=== PATIENT | male | born 1950 | race Caucasian/White ===

== ENCOUNTER → 2017-07-07 | Day surgery (SDC) | payer BC, MEDICARE ==
[2017-06-24 08:15] VITALS: BMI 38.0
[~2017-07-07] VITALS: Ht 185.4 cm; Wt 131.8 kg
[~2017-07-07] MED LIST: ASCO100061 PO; CHOL4POW4 PO; CLON0.1T12 PO; GLUCTAB7 PO; HYDR-4717 PO; LIDOCAINE HCL 2% 2 ML VIAL (20MG/ML) ONE; LOSA50TA6 PO; MULT-190 PO; MULT-506 PO; OMEG-27 PO; POTA20TA16 PO; PROPOFOL IV EMULSION 10 MG/ML 20 ML VIAL IV ONE; SIMV20TA5 PO; SODIUM CHLORIDE 0.9% 500ML 500 ML IV ONE; TORS20TA2 PO
[2017-07-07 08:54] VITALS: Ht 185.4 cm; Wt 131.8 kg
--- NOTE | 2017-07-07 09:11 | Endo History and Physical ---
History & Physical Date of Service: Jul 07, 2017. Chief Complaint: screening Referring Physician: Dr. Maradiaga History of Present Illness 66 yo CM who presents for screening colonoscopy. Past Surgical History Hx Cardiac Surgery: No Hx Internal Defibrillator: No Hx Pacemaker: No Hx Abdominal Surgery: No Hx of Implantable Prosthesis: No Hx Post-Op Nausea and Vomiting: No Hx Cancer Surgery: No Hx Thoracic Surgery: No Hx Orthopedic: Yes (LT SHOULDER SURGERY, CERVICAL DISCECTOMY 2,3,4 (LIMITED LEFT)) Hx Urinary Tract Surgery: No Family History None Social History Smoking Status: Former Smoker Hx Substance Use: No Hx Alcohol Use: No Allergies Coded Allergies: Tetanus Toxoid (Verified Allergy, Mild, NUMBNESS, 06/24/17) Acetaminophen (Verified Adverse Reaction, Intermediate, FLUSHING WITH " TOO MUCH TYLENOL", 07/07/17) Sulfa Antibiotics (Verified Adverse Reaction, Intermediate, "PEELED SKIN OFF BOTTOM OF FEET", 07/07/17) Current Medications Reported Home Medications Medications Dose Route/Sig Max Daily Dose Days Date Category Cozaar (Losartan Potassium) 50 Mg Tab 50 Mg PO QAM 06/24/17 Reported Catapres (Clonidine Hcl) 0.1 Mg Tab 1 Tab PO BID 06/24/17 Reported Klor-Con (Potassium Chloride) 20 Meq Tabcr 20 Meq PO TID 06/24/17 Reported Multivitamin (Multivitamins) Tab 1 Tab PO QAM 06/24/17 Reported Fish Oil ([place]-3 Fatty Acids) 1 Cap Cap 1 Cap PO QAM 06/24/17 Reported Ocuvite Preservision (Multivitamins/Minerals) 1 Tab Tab 2 Tabs PO BID 06/24/17 Reported Apresoline (Hydralazine Hcl) 50 Mg Tab 50 Mg PO BID 06/24/17 Reported Ascorbic Acid 1,000 Mg Tab 1,000 Mg PO QAM 02/01/13 Reported Glucosamine Chondroitin (Jyjhtqliewr-Klwlzoaqbov-Whr C-) 1 Tab Tab 2 Tablets PO QAM 02/01/13 Reported Demadex (Torsemide) 20 Mg Tab 1 Tab PO QAM 02/01/13 Reported Zocor (Simvastatin) 20 Mg Tab 20 Mg PO QAM 02/01/13 Reported Cholestyramine 4 Gm Pow 4 Gm PO BID 02/01/13 Reported Vital Signs Weight (Kilograms): 131.82 Height (Feet): 6 Height (Inches): 1 Date Time Temp Pulse Resp B/P (MAP) Pulse Ox O2 Delivery O2 Flow Rate FiO2 07/07/17 08:59 36.6 63 18 160/98 (118) 95 Room Air Physical Exam General Appearance: WD/WN, no apparent distress Respiratory/Chest: Auscultation: breath sounds normal Cardiovascular: Heart Auscultation: RRR Abdomen: Bowel Sounds: normal Inspection & Palpation: soft, non-distended, no tenderness, guarding & rebound Assessment and Plan Assessment: 66 yo CM who presents for screening colonoscopy. Plan: Proceed with colonoscopy.
--- NOTE | 2017-07-07 10:16 | GI REPORT ---
Procedure Date: 07/07/2017 9:37 AM Procedure: Colonoscopy Indications: Screening for colorectal malignant neoplasm Medicines: Monitored Anesthesia Care Complications: No immediate complications. Estimated Blood Loss: Estimated blood loss: none. Procedure: Pre-Anesthesia Assessment: - Prior to the procedure, a History and Physical was performed, and patient medications and allergies were reviewed. The patient's tolerance of previous anesthesia was also reviewed. The risks and benefits of the procedure and the sedation options and risks were discussed with the patient. All questions were answered, and informed consent was obtained. Prior Anticoagulants: The patient has taken no previous anticoagulant or antiplatelet agents. ASA Grade Assessment: II - A patient with mild systemic disease. After reviewing the risks and benefits, the patient was deemed in satisfactory condition to undergo the procedure. After I obtained informed consent, the scope was passed under direct vision. Throughout the procedure, the patient's blood pressure, pulse, and oxygen saturations were monitored continuously. The scope was introduced through the anus and advanced to the terminal ileum. The colonoscopy was performed without difficulty. The patient tolerated the procedure well. The quality of the bowel preparation was good. The terminal ileum, ileocecal valve, appendiceal orifice, and rectum were photographed. Findings: Multiple small-mouthed diverticula were found in the sigmoid colon. Non-bleeding internal hemorrhoids were found during retroflexion. The hemorrhoids were small. Impression: - Diverticulosis in the sigmoid colon. - Non-bleeding internal hemorrhoids. - No specimens collected. Recommendation: - Resume previous diet. - Continue present medications. - Repeat colonoscopy in 10 years for surveillance. - Return to primary care physician as previously scheduled. Gamal Patricio, 07/07/2017 10:15:07 AM This report has been signed electronically. Note Initiated On: 07/07/2017 9:37 AM I attest to the content of the Intraoperative Record and orders documented therein, exceptions below
--- NOTE | 2017-07-07 10:19 | Discharge Instructions ---
Endoscopy Patient Instructions Date / Procedure(s) Performed Jul 07, 2017. Colonoscopy Allergy Information Coded Allergies: Tetanus Toxoid (Verified Allergy, Mild, NUMBNESS, 06/24/17) Acetaminophen (Verified Adverse Reaction, Intermediate, FLUSHING WITH " TOO MUCH TYLENOL", 07/07/17) Sulfa Antibiotics (Verified Adverse Reaction, Intermediate, "PEELED SKIN OFF BOTTOM OF FEET", 07/07/17) Discharge Date / Findings Jul 07, 2017. Diverticulosis Internal hemorrhoids Medication Instructions OK to resume all medications today as prescribed Reported Home Medications Medications Dose Route/Sig Max Daily Dose Days Date Category Cozaar (Losartan Potassium) 50 Mg Tab 50 Mg PO QAM 06/24/17 Reported Catapres (Clonidine Hcl) 0.1 Mg Tab 1 Tab PO BID 06/24/17 Reported Klor-Con (Potassium Chloride) 20 Meq Tabcr 20 Meq PO TID 06/24/17 Reported Multivitamin (Multivitamins) Tab 1 Tab PO QAM 06/24/17 Reported Fish Oil ([place]-3 Fatty Acids) 1 Cap Cap 1 Cap PO QAM 06/24/17 Reported Ocuvite Preservision (Multivitamins/Minerals) 1 Tab Tab 2 Tabs PO BID 06/24/17 Reported Apresoline (Hydralazine Hcl) 50 Mg Tab 50 Mg PO BID 06/24/17 Reported Ascorbic Acid 1,000 Mg Tab 1,000 Mg PO QAM 02/01/13 Reported Glucosamine Chondroitin (Xwwuenouktz-Fuuqhudtwtw-Hzl C-) 1 Tab Tab 2 Tablets PO QAM 02/01/13 Reported Demadex (Torsemide) 20 Mg Tab 1 Tab PO QAM 02/01/13 Reported Zocor (Simvastatin) 20 Mg Tab 20 Mg PO QAM 02/01/13 Reported Cholestyramine 4 Gm Pow 4 Gm PO BID 02/01/13 Reported Provider Instructions Activity Restrictions - No exercising or heavy lifting for 24 hours. - Do not drink alcohol the day of the procedure. - Do not drive a car or operate machinery until the day after the procedure. - Do not make any important decisions or sign important papers in 24 hours after the procedure. Following Day: - Return to full activity which may include returning to work/school. Diet Start your diet with liquids and light foods (jello, soup, juice, toast). Then eat your usual diet if not nauseated. Treatment For Common After Affects For mild abdominal pain, bloating, or excessive gas: - Rest - Eat lightly - Lie on right side Follow-Up Information Follow-up with Dr. Maradiaga as scheduled Anesthesia Information What You Should Know You have had a procedure that required some medicine to reduce anxiety and discomfort. This treatment is called moderate sedation. After receiving the treatment, you may be sleepy, but you will be able to breathe on your own. The effects of the treatment may last for several hours. Follow these instructions along with Activity/Diet recommendations noted above: * Do NOT do anything where dizziness or clumsiness would be dangerous. * Rest quietly at home today, then you can be up and about tomorrow. * Have a responsible person stay with you the rest of today. * You may have had an I.V. today. If so, you may take the dressing off later today. Recommendations Call your doctor if: * Trouble breathing * Continuous vomiting for more than 24 hours * Temperature above 101 degrees * Severe abdominal pain or bloating * Pain not relieved by pain medicine ordered * There is increased drainage or redness from any incision * A large amount of rectal bleeding greater than 2-3 tablespoons. (If you had a polyp/s removed or have hemorrhoids, a small amount of blood - from the rectum is to be expected.) * You have any unanswered questions or concerns. IN THE EVENT OF A SERIOUS EMERGENCY, GO TO THE NEAREST EMERGENCY ROOM Your discharge instructions were prepared by provider Gamal Patricio. Patient Instructions Signature Page Aníbal Salazar Patient (or Guardian) Signature/Date: I have read and understand the instructions given to me by my caregivers. Caregiver/RN/Doctor Signature/Date: The above-named patient and/or guardian has received patient instructions on this date. + Original Patient Signature Page (only) stays with chart. Please make copy for patient.
--- NOTE | 2017-07-07 10:37 | Anesthesiology Progress Note ---
Anesthesia Post Op Note Date & Time Jul 07, 2017 at 10:37 Vital Signs Pain Intensity: 0 Vital Signs Past 12 Hours Date Time Temp Pulse Resp B/P (MAP) Pulse Ox O2 Delivery O2 Flow Rate FiO2 07/07/17 10:23 59 18 131/88 (102) 96 Room Air 07/07/17 10:08 68 18 130/87 (101) 97 Room Air 07/07/17 08:59 36.6 63 18 160/98 (118) 95 Room Air Notes Mental Status: alert / awake / arousable, participated in evaluation Pt Amnestic to Procedure: Yes Nausea / Vomiting: adequately controlled Pain: adequately controlled Airway Patency, RR, SpO2: stable & adequate BP & HR: stable & adequate Hydration State: stable & adequate Anesthetic Complications: no major complications apparent
[2017-07-07 10:38] VITALS: BP 155/97; PULSE 59; O2SAT 97
== END | disposition home or self-care (01) ==
LOC: C.GI 08:29
PROVIDERS: ATTEND Internal Medicine
DX: Z12.11 Encounter for screening for malignant neoplasm of colon (principal); Z87.891 Personal history of nicotine dependence; K57.30 Diverticulosis of large intestine without perforation or abscess without bleeding; K64.8 Other hemorrhoids

== ENCOUNTER 2017-10-28 10:36 | Inpatient (IN) | payer MEDICARE, OTHER ==
[2017-10-28] VITALS (8 sets, daily range): BP systolic 136–160; BP diastolic 71–98; PULSE 90–130; TEMP 36.8–37.8; O2SAT 92–97; Ht 185.4 cm; Wt 135.1 kg
[~2017-10-28] VITALS: Ht 185.4 cm; Wt 135.1 kg
[~2017-10-28 10:36] MED LIST changes: -LIDOCAINE HCL 2% 2 ML VIAL (20MG/ML) ONE; +POTA-639 PO; -POTA20TA16 PO; -PROPOFOL IV EMULSION 10 MG/ML 20 ML VIAL IV ONE; -SODIUM CHLORIDE 0.9% 500ML 500 ML IV ONE
[2017-10-28 11:45] LABS: HEMATOCRIT 44.8 % (42-52); HEMOGLOBIN 14.9 g/dL (14.0-18.0); MEAN CELL VOLUME 92.2 fL (80-100); MEAN CORPUSCULAR HEMOGLOBIN 30.7 pg (25-34); MEAN CORPUSCULAR HGB CONC 33.3 g/dl (32-36); MEAN PLATELET VOLUME 10.9 fL (7.4-10.4); PLATELET COUNT 239 K/uL (130-400); RED CELL DISTRIBUTION WIDTH CV 13.7 % (11.5-14.5); RED CELL DISTRIBUTION WIDTH SD 46.3 fL (36.4-46.3); WHITE BLOOD COUNT 11.73 K/uL (4.8-10.8)
[2017-10-28 11:48] LABS: INR 1.1 (0.9-1.1)
[2017-10-28 11:54] LABS: ALBUMIN 2.5 gm/dl (3.4-5.0); CALCIUM 8.7 mg/dl (8.5-10.1); CREATININE 0.85 mg/dl (0.60-1.40); POTASSIUM 4.1 mmol/L (3.5-5.1)
[2017-10-28 11:58] LABS: CKMB 1.5 ng/ml (0.5-3.6); TOTAL PROTEIN 6.6 gm/dl (6.4-8.2)
--- NOTE | 2017-10-28 12:00 | DIAGNOSTIC IMAGING REPORT ---
CHEST ONE VIEW PORTABLE CLINICAL HISTORY: new onset afib COMPARISON STUDY: 03/07/2014 FINDINGS: The heart is enlarged. There is no lobar consolidation. There is suspected bronchial wall thickening within the right lower lobe medially. There is mild central vascular prominence without evidence of overt failure. There are no significant pleural effusions. There are minor left basilar atelectatic changes.[ IMPRESSION: 1. Cardiomegaly. Mild central vascular prominence without evidence of overt failure 2. Suspected right lower lobe bronchial wall thickening Electronically signed by: Toño Romero M.D. 10/28/2017 11:58 AM Dictated Date/Time: 10/28/2017 11:57 AM
[2017-10-28] MEDS ORDERED: SODIUM CHLORIDE 0.9% 1000ML 1,000 ML IV STA (12:12)
--- NOTE | 2017-10-28 12:31 | EMERGENCY ROOM VISIT NOTE ---
History Report prepared by María: Osbaldo Torres Under the Supervision of: Dr. Jaylon Bang M.D. First contact with patient: 12:01 Chief Complaint: CARDIAC ASSESSMENT Stated Complaint: FLU - REFERRED BY DR Kaba Triage Summary: pt c/o cough w/ thick yellow sputum begining zackary leonard. pt went to PCP this am for flu like sx. instructed to come to ER d/t new onset a. fib. History of Present Illness The patient is a 67 year old male who presents to the Emergency Room with complaints of constant atrial fibrillation that began prior to arrival. The patient states that he has had the flu starting 8 days ago, including a productive cough with yellow sputum. He reports that he has also been experiencing a fever, sinus congestion, and a headache. The patient states that he has been experiencing intermittent diarrhea as well. The patient states that he has not been able to sleep and has not had an appetite due to his symptoms. He states that he took Delsym, DayQuil, and other cold medications for his symptoms with some mild relief. The patient states that his symptoms are not as severe today as they were previously. He reports that he went to his doctor today for his flu symptoms to get medications. The patient states that Dr. Junior diagnosed him with atrial fibrillation after testing and sent him to the ED. He denies chest pain, palpitations, a history of heart problems, leg pain, new leg swelling, and abdominal pain. The patient states that he has a history of hypertension, which he states he has been taking medication for. He reports he also takes medication for leg swelling, but states that he did not take his medication today. The patient denies any fluid in his lungs. Source of History: patient Onset: MED DIR Position: other (global) Quality: other (atrial fibrillation) Timing: constant Associated Symptoms: + fevers, + headache, + cough, + diarrhea, No chest pain, No abdominal pain Review of Systems See HPI for pertinent positives & negatives. A total of 10 systems reviewed and were otherwise negative. Past Medical & Surgical Medical Problems: (1) HTN (hypertension) (2) New onset a-fib Surgical Problems: (1) H/O shoulder surgery Old medical records were reviewed. Nurse's notes were reviewed and I agree with. Family History Patient reports no known family medical history. Social History Smoking Status: Former Smoker Alcohol Use: none Drug Use: none Marital Status: Housing Status: lives with significant other Occupation Status: retired Current/Historical Medications Scheduled Ascorbic Acid (Ascorbic Acid), 1,000 MG PO QAM Cholestyramine (Cholestyramine), 4 GM PO BID Clonidine Hcl (Catapres), 0.1 MG PO BID Sxvghzievvs-Qmamaxnyrhr-Vcr C- (Glucosamine Chondroitin), 2 TABLETS PO QAM Hydralazine Hcl (Apresoline), 50 MG PO BID Losartan Potassium (Cozaar), 50 MG PO QAM Multivitamin (Multivitamin), 1 TAB PO QAM Ocuvite Preservision (Ocuvite Preservision), 2 TABS PO BID [place]-3 Fatty Acids (Fish Oil), 1 CAP PO QAM Potassium Ext Rel (Klor-Con), 20 MEQ PO TID Simvastatin (Zocor), 20 MG PO QAM Torsemide (Demadex), 20 MG PO QAM Allergies Coded Allergies: Tetanus Toxoid (Verified Allergy, Mild, NUMBNESS, 10/28/17) Acetaminophen (Verified Adverse Reaction, Intermediate, FLUSHING WITH " TOO MUCH TYLENOL", 10/28/17) Sulfa Antibiotics (Verified Adverse Reaction, Intermediate, "PEELED SKIN OFF BOTTOM OF FEET", 10/28/17) Physical Exam Vital Signs Date Time Temp Pulse Resp B/P (MAP) Pulse Ox O2 Delivery O2 Flow Rate FiO2 10/28/17 13:10 92 Nasal Cannula 2.0 10/28/17 12:56 120 20 129/88 92 Nasal Cannula 2.0 10/28/17 11:36 128 10/28/17 11:33 Room Air 10/28/17 11:30 93 Room Air 10/28/17 11:30 94 Room Air 10/28/17 11:30 93 Room Air 10/28/17 11:30 94 Room Air 10/28/17 11:19 130 18 117/81 94 Room Air 10/28/17 11:17 97 Room Air 10/28/17 10:58 37.7 132 20 162/98 97 Room Air Physical Exam General: Non-ill appearing middle aged male with an occasional cough, otherwise in no acute distress. HEENT: Normal cephalic atraumatic. Pupils are equal round and reactive to light. Extraocular movements are intact. Oropharynx is pink with moist mucous membranes. No swelling of the mouth lips or tongue. Neck: Supple with a midline trachea. No meningeal signs or stiffness, no JVD or bruits. No Stridor. Chest: Clear to auscultation bilaterally. No wheezes or rhonchi. No increased work of breathing. Heart: Moderately tachycardic and irregularly irregular. Abdomen: Soft nontender, nondistended without rebound guarding or rigidity. Extremities: No cyanosis clubbing. traced 1+ le edema. No calf tenderness or assymetry Spine/Back. Non tender to palpation. No CVA tenderness Skin: Good turgor without rashes. Neurologic exam: Cranial nerves two through 12 are intact. Motor and sensation are intact and symmetrical throughout. Medical Decision & Procedures ER Provider Diagnostic Interpretation: Radiology results as stated below per my review and radiologist interpretation: CHEST ONE VIEW PORTABLE CLINICAL HISTORY: new onset afib COMPARISON STUDY: 03/07/2014 FINDINGS: The heart is enlarged. There is no lobar consolidation. There is suspected bronchial wall thickening within the right lower lobe medially. There is mild central vascular prominence without evidence of overt failure. There are no significant pleural effusions. There are minor left basilar atelectatic changes.[ IMPRESSION: 1. Cardiomegaly. Mild central vascular prominence without evidence of overt failure 2. Suspected right lower lobe bronchial wall thickening Electronically signed by: Toño Romero M.D. 10/28/2017 11:58 AM Dictated Date/Time: 10/28/2017 11:57 AM CHEST ONE VIEW PORTABLE CLINICAL HISTORY: CHEST PAIN dyspnea COMPARISON STUDY: 10/28/2017 FINDINGS: Side progressive bibasilar interstitial Bronchial prominence. Moderate stable cardiomegaly. Upper lungs are clear. IMPRESSION: Some progressive bibasilar parenchymal peribronchial and interstitial change possibly in the bases of basilar pneumonitis. The above report was generated using voice recognition software. It may contain grammatical, syntax or spelling errors. Electronically signed by: Nam Bradford M.D. 10/28/2017 1:00 PM Dictated Date/Time: 10/28/2017 12:56 PM Laboratory Results 10/28/17 11:10 Test 10/28/17 11:10 10/28/17 12:26 10/28/17 12:44 Prothrombin Time 11.3 SECONDS (9.0-12.0) Prothromb Time International Ratio 1.1 (0.9-1.1) Activated Partial Thromboplast Time 27.0 SECONDS (21.0-31.0) Partial Thromboplastin Ratio 1.0 Anion Gap 6.0 mmol/L (3-11) Est Creatinine Clear Calc Drug Dose 111.1 ml/min Estimated GFR () 104.5 Estimated GFR (Non- 90.2 BUN/Creatinine Ratio 13.9 (10-20) Calcium Level 8.7 mg/dl (8.5-10.1) Phosphorus Level 2.4 mg/dl (2.5-4.9) Magnesium Level 2.4 mg/dl (1.8-2.4) Total Bilirubin 0.7 mg/dl (0.2-1) Direct Bilirubin 0.3 mg/dl (0-0.2) Aspartate Amino Transf (AST/SGOT) 45 U/L (15-37) Alanine Aminotransferase (ALT/SGPT) 107 U/L (12-78) Alkaline Phosphatase 78 U/L (45-117) Total Creatine Kinase 100 U/L (39-308) Creatine Kinase MB 1.5 ng/ml (0.5-3.6) Creatine Kinase MB Ratio 1.5 (0-3.0) Troponin I 0.022 ng/ml (0-0.045) Pro-B-Type Natriuretic Peptide 1448 pg/ml (0-900) Total Protein 6.6 gm/dl (6.4-8.2) Albumin 2.5 gm/dl (3.4-5.0) Globulin 4.1 gm/dl (2.5-4.0) Albumin/Globulin Ratio 0.6 (0.9-2) Triglycerides Level 102 mg/dl (0-150) Cholesterol Level 120 mg/dl (0-200) HDL Cholesterol 24 mg/dl LDL Cholesterol, Calculated 76 mg/dl VLDL Cholesterol, Calculated 20 mg/dl Cholesterol/HDL Ratio 5.0 Lipase 344 U/L (73-393) Thyroid Stimulating Hormone (TSH) 0.895 uIu/ml (0.300-4.500) Thyroxine (T4) 9.2 mcg/dl (4.5-10.9) Influenza Type A (RT-PCR) Neg for Influ A (NEG) Influenza Type A Antigen Neg for Influ A (NEG) Influenza Type B Antigen Neg for Influ B (NEG) Influenza Type B (RT-PCR) Neg for Influ B (NEG) Bedside Lactic Acid Venous 1.25 mmol/L (0.90-1.70) Laboratory studies as stated above per my review. Medications Administered Medications (Trade) Dose Ordered Sig/Rere Route Start Time Stop Time Status Last Admin Dose Admin Sodium Chloride 1,000 ml @ 999 mls/hr Q1H1M STAT IV 10/28/17 12:12 10/28/17 13:12 DC 10/28/17 12:23 999 MLS/HR ECG Indication: other (atrial fibrillation) Rate (beats per minute): 138 Rhythm: atrial fibrillation Findings: nonspecific-ST abn, other (RVR) Comparison ECG Date: Pre-hospital Change: no significant change ED Course 1201: Past medical records reviewed. The patient was evaluated in room C05, and a complete history and physical examination were performed. 1212: Ordered Sodium Chloride 1000 ml @ 999 mls/hr IV. 1217: I paged Cardiology. 1218: I reevaluated the patient and updated him on his results. I discussed the treatment plan, which he agrees to. The patient will be further evaluated. 1239: I discussed the patients case with Dr. Maco Castro, [facility] Cardiology . He understands the patients condition and agrees to accept the patient. The patient will be further evaluated. Medical Decision Differentials include, but are not limited to; influenza, pneumonia, CHF, arrhythmia, valvular heart disease , electrolyte or metabolic abnormality. This patient comes in as described above. He was sent over by the primary care physician after being found to be a new onset rapid A. fib. He's had flulike symptoms for about the last week. He's had a cough and he does have a low- grade temperature here. His heart rate is mildly elevated. Some of this I think is compensatory with the fever. He's been using a lot of cold medicines which could have some stimulants in them. IV access established and he was hydrated with IV normal saline. EKG shows rapid A. fib but no ischemic changes. His troponin is not elevated influenza is pending. No acute electrode or metabolic abnormalities. I do think he needs to be admitted for further treatment and evaluation certainly infection or sepsis is still in the differential and blood cultures were obtained. He will be admitted. Medication Reconcilliation Current Medication List: was personally reviewed by me Blood Pressure Screening Patient's blood pressure: Normal blood pressure Consults Time Called: 1217 Consulting Physician: Dr. Maco Castro, [facility] Cardiology Returned Call: 1239 I discussed the patients case with Dr. Maco Castro, [facility] Cardiology . He understands the patients condition and agrees to accept the patient. The patient will be further evaluated. Impression Primary Impression: New onset a-fib Additional Impression: Influenza-like illness Scribe Attestation The scribe's documentation has been prepared under my direction and personally reviewed by me in its entirety. I confirm that the note above accurately reflects all work, treatment, procedures, and medical decision making performed by me. Departure Information Dispostion Being Evaluated By Hospitalist Referrals Jaylon Maradiaga DO (PCP) Patient Instructions My [facility] Problem Qualifiers
--- NOTE | 2017-10-28 13:01 | DIAGNOSTIC IMAGING REPORT ---
CHEST ONE VIEW PORTABLE CLINICAL HISTORY: CHEST PAIN dyspnea COMPARISON STUDY: 10/28/2017 FINDINGS: Side progressive bibasilar interstitial Bronchial prominence. Moderate stable cardiomegaly. Upper lungs are clear. IMPRESSION: Some progressive bibasilar parenchymal peribronchial and interstitial change possibly in the bases of basilar pneumonitis. The above report was generated using voice recognition software. It may contain grammatical, syntax or spelling errors. Electronically signed by: Nam Bradford M.D. 10/28/2017 1:00 PM Dictated Date/Time: 10/28/2017 12:56 PM
--- NOTE | 2017-10-28 13:10 | NUR ---
A/ID: 67 year old male in ED. c/o flu s/s and new onset atrial fibrillation. PCU admission. Admission Assessment done. Code Word/Fall Agreement reviewed with patient and completed. Droplet precautions. Continued care in ED by YESICA Agudelo.
[2017-10-28 13:16] LABS: INFLUENZA B ANTIGEN Neg for Influ B (NEG)
[2017-10-28] MEDS ORDERED: ALUMINUM/MAGNESIUM/SIMETH (MAALOX MAX) 30 ML UDC PO PRN (13:45)
[2017-10-28] MEDS ORDERED: NITROGLYCERIN 0.4 MG SL PER TAB CHARGE SL PRN (13:45)
[2017-10-28] MEDS ORDERED: POLYETHYLENE (MIRALAX) 17 GM PACK PO PRN (13:45)
[2017-10-28] MEDS ORDERED: MAGNESIUM HYDROXIDE SUSP 30 ML UDC PO PRN (13:45)
[2017-10-28] MEDS ORDERED: ONDANSETRON INJ 2 MG/ML 2 ML VIAL IV PRN (13:45)
[2017-10-28] MEDS ORDERED: DILTIAZEM BOLUS / DRIP IV SCH (13:45)
[2017-10-28] MEDS ORDERED: ZOLPIDEM TARTRATE 5 MG TAB PO PRN ×2 (13:45)
[2017-10-28 14:00] LABS: INFLUENZA A PCR Neg for Influ A (NEG); INFLUENZA B PCR Neg for Influ B (NEG)
[2017-10-28] MEDS ORDERED: DILTIAZEM HCL 5 MG/ML 5 ML VIAL BOLUS/OMNI IV SCH (14:30)
[2017-10-28 14:58] LABS: BASO % 0.1 %; BASO ABS # 0.01 K/uL (0-0.2); EOS % 0.5 %; EOS ABS # 0.05 K/uL (0-0.5); HEMATOCRIT 43.3 % (42-52); HEMOGLOBIN 14.4 g/dL (14.0-18.0); IG# 0.03 K/uL (0.00-0.02); LYMPH % 11.4 %; LYMPH ABS # 1.16 K/uL (1.2-3.4); MEAN CELL VOLUME 92.3 fL (80-100); MEAN CORPUSCULAR HEMOGLOBIN 30.7 pg (25-34); MEAN CORPUSCULAR HGB CONC 33.3 g/dl (32-36); MEAN PLATELET VOLUME 10.2 fL (7.4-10.4); MONO % 12.8 %; NEUT % 74.9 %; NEUT ABS # 7.61 K/uL (1.4-6.5); PLATELET COUNT 216 K/uL (130-400); RED CELL DISTRIBUTION WIDTH CV 13.9 % (11.5-14.5); RED CELL DISTRIBUTION WIDTH SD 47.3 fL (36.4-46.3); WHITE BLOOD COUNT 10.16 K/uL (4.8-10.8)
[2017-10-28] MEDS: DILTIAZEM HCL INJ 125 MG in DEXTROSE 5% 100ML IV PRN ×4 (14:58→23:16)
[2017-10-28 15:05] LABS: PHOSPHORUS 2.4 mg/dl (2.5-4.9)
--- NOTE | 2017-10-28 15:23 | History and Physical ---
History & Physical Date & Time of Service: Oct 28, 2017 at 15:12 Chief Complaint: Flu - Referred By Primary Care Physician: Jaylon Maradiaga DO History of Present Illness Source: patient, partner 67 years old man with past medical history of hypertension, dyslipidemia, arthritis and obesity. Presented to the ED as he was sent from his primary care physician office to be evaluated for new onset atrial fibrillation. He has upper respiratory tract infection for 1 week. Fever chills dry cough rarely productive clear mucus. He thought he has flu. He was treating himself with [id number] medications Delsym, DayQuil, etc. ). Presented today to Dr. Robin office. Accidentally found that she has new onset atrial fibrillation. Aside from the symptoms mentioned above patient does not have any chest pain or palpitation. Not aware of any similar episodes in the past.. He skipped taking his water bill today so his lower extremities are slightly swollen as per patient. He does not take aspirin and he was instructed not to do He was also instructed not to take any ouvz-vps-gkiqfpm pain medicine except Tylenol Does not smoke Drinks alcohol socially Past Medical/Surgical History Surgical Problems: (1) H/O shoulder surgery Status: Resolved Family History Patient reports no known family medical history. Social History Smoking Status: Former Smoker Drug Use: none Marital Status: Occupational Status: retired Immunizations History of Influenza Vaccine: No History of Tetanus Vaccine?: No History of Pneumococcal: No History of Hepatitis B Vaccine: No Multi-Drug Resistant Organisms History of MDRO: No Allergies Coded Allergies: Tetanus Toxoid (Verified Allergy, Mild, NUMBNESS, 10/28/17) Acetaminophen (Verified Adverse Reaction, Intermediate, FLUSHING WITH " TOO MUCH TYLENOL", 10/28/17) Sulfa Antibiotics (Verified Adverse Reaction, Intermediate, "PEELED SKIN OFF BOTTOM OF FEET", 10/28/17) Home Medications Scheduled Ascorbic Acid (Ascorbic Acid), 1,000 MG PO QAM Cholestyramine (Cholestyramine), 4 GM PO BID Clonidine Hcl (Catapres), 0.1 MG PO BID Oeihxinsyjy-Rqwukooinku-Zqe C- (Glucosamine Chondroitin), 2 TABLETS PO QAM Hydralazine Hcl (Apresoline), 50 MG PO BID Losartan Potassium (Cozaar), 50 MG PO QAM Multivitamin (Multivitamin), 1 TAB PO QAM Ocuvite Preservision (Ocuvite Preservision), 2 TABS PO BID [place]-3 Fatty Acids (Fish Oil), 1 CAP PO QAM Potassium Ext Rel (Klor-Con), 20 MEQ PO TID Simvastatin (Zocor), 20 MG PO QAM Torsemide (Demadex), 20 MG PO QAM Review of Systems Constitutional: + fever, + chills, + fatigue Eyes: No worsening of vision, No eye pain, No redness, No discharge, No diplopia, No problem reported ENT: No hearing loss, No unusual epistaxis, No nasal symptoms, No sore throat, No tinnitus, No dental problems, No trouble swallowing, No problem reported Respiratory: + cough, + shortness of breath, + dyspnea on exertion, No sputum, No wheezing, No dyspnea at rest, No hemoptysis, No problem reported Cardiovascular: No chest pain, No orthopnea, No PND, No edema, No claudication , No palpitations, No problem reported Abdomen: No pain, No nausea, No vomiting, No diarrhea, No constipation, No GI bleeding, No problem reported Musculoskeletal: No joint pain, No muscle pain, No swelling, No calf pain, No problem reported Genitourinary - Male: No hematuria, No dysuria, No urinary frequency, No urinary urgency, No urinary hesitancy, No urinary retention, No urinary incontinence, No penile discharge, No lesions, No impotence, No problem reported Neurologic: No memory loss, No paralysis, No weakness, No numbness/tingling, No vertigo, No balance problems, No problem reported Psychiatric: No depression symptoms, No anhedonism, No anxiety, No insomnia, No substance abuse, No problem reported Endocrine: No fatigue, No excessive thirst, No excessive urination, No problem reported Hematologic / Lymphatic: No abnormal bleeding/bruising, No clotting problems, No swollen lymph nodes, No night sweats, No problem reported Integumentary: No rash, No itch, No new/changing skin lesions, No color change , No bleeding, No problem reported Allergic / Immunologic: No environmental allergies, No seasonal allergies, No pet sensitivities, No food allergies, No hives, No frequent infections, No poor healing, No prolonged convalescence, No problem reported Physical Exam Vital Signs Date Time Temp Pulse Resp B/P (MAP) Pulse Ox O2 Delivery O2 Flow Rate FiO2 1/2/18 12:56 120 20 129/88 92 Nasal Cannula 2.0 10/28/17 11:36 128 10/28/17 11:33 Room Air 10/28/17 11:30 93 Room Air 10/28/17 11:30 94 Room Air 10/28/17 11:30 93 Room Air 10/28/17 11:30 94 Room Air 10/28/17 11:19 130 18 117/81 94 Room Air 10/28/17 11:17 97 Room Air 10/28/17 10:58 37.7 132 20 162/98 97 Room Air General Appearance: no apparent distress, + obese Head: normocephalic, atraumatic Eyes: normal inspection, EOMI ENT: normal ENT inspection, hearing grossly normal Neck: supple Respiratory/Chest: chest non-tender, lungs clear, no accessory muscle use, + decreased breath sounds, + crackles Cardiovascular: + irregularly irregular, + abnormal rate, + pertinent finding ( +2 edema B/L) Abdomen/GI: normal bowel sounds, non tender, soft, no organomegaly, no pulsatile mass Back: normal inspection Extremities/Musculoskelatal: normal inspection, no calf tenderness, normal capillary refill, + pedal edema Neurologic/Psych: board saw runner II-XII nml as tested, no motor/sensory deficits, alert, normal mood/affect, normal reflexes, oriented x 3 Skin: normal color, warm/dry, no rash Diagnostics Laboratory Results Results Past 24 Hours Test 10/28/17 11:10 10/28/17 12:26 10/28/17 12:44 10/28/17 14:51 Range/Units White Blood Count 11.73 10.16 4.8-10.8 K/uL Red Blood Count 4.86 4.69 4.7-6.1 M/uL Hemoglobin 14.9 14.4 14.0-18.0 g/dL Hematocrit 44.8 43.3 42-52 % Mean Corpuscular Volume 92.2 92.3 80-100 fL Mean Corpuscular Hemoglobin 30.7 30.7 25-34 pg Mean Corpuscular Hemoglobin Concent 33.3 33.3 32-36 g/dl RDW Standard Deviation 46.3 47.3 36.4-46.3 fL RDW Coefficient of Variation 13.7 13.9 11.5-14.5 % Platelet Count 239 216 130-400 K/uL Mean Platelet Volume 10.9 10.2 7.4-10.4 fL Prothrombin Time 11.3 9.0-12.0 SECONDS Prothromb Time International Ratio 1.1 0.9-1.1 Activated Partial Thromboplast Time 27.0 21.0-31.0 SECONDS Partial Thromboplastin Ratio 1.0 Sodium Level 140 136-145 mmol/L Potassium Level 4.1 3.5-5.1 mmol/L Chloride Level 107 98-107 mmol/L Carbon Dioxide Level 27 21-32 mmol/L Anion Gap 6.0 3-11 mmol/L Blood Urea Nitrogen 12 7-18 mg/dl Creatinine 0.85 0.60-1.40 mg/dl Est Creatinine Clear Calc Drug Dose 111.1 ml/min Estimated GFR () 104.5 Estimated GFR (Non- 90.2 BUN/Creatinine Ratio 13.9 10-20 Random Glucose 121 70-99 mg/dl Calcium Level 8.7 8.5-10.1 mg/dl Phosphorus Level 2.4 2.5-4.9 mg/dl Magnesium Level 2.4 1.8-2.4 mg/dl Total Bilirubin 0.7 0.2-1 mg/dl Direct Bilirubin 0.3 0-0.2 mg/dl Aspartate Amino Transf (AST/SGOT) 45 15-37 U/L Alanine Aminotransferase (ALT/SGPT) 107 12-78 U/L Alkaline Phosphatase 78 45-117 U/L Total Creatine Kinase 100 39-308 U/L Creatine Kinase MB 1.5 0.5-3.6 ng/ml Creatine Kinase MB Ratio 1.5 0-3.0 Troponin I 0.022 0-0.045 ng/ml Pro-B-Type Natriuretic Peptide 1448 0-900 pg/ml Total Protein 6.6 6.4-8.2 gm/dl Albumin 2.5 3.4-5.0 gm/dl Globulin 4.1 2.5-4.0 gm/dl Albumin/Globulin Ratio 0.6 0.9-2 Triglycerides Level 102 0-150 mg/dl Cholesterol Level 120 0-200 mg/dl HDL Cholesterol 24 mg/dl LDL Cholesterol, Calculated 76 mg/dl VLDL Cholesterol, Calculated 20 mg/dl Cholesterol/HDL Ratio 5.0 Lipase 344 73-393 U/L Thyroid Stimulating Hormone (TSH) 0.895 0.300-4.500 uIu/ml Thyroxine (T4) 9.2 4.5-10.9 mcg/dl Influenza Type A (RT-PCR) Neg for Influ A NEG Influenza Type A Antigen Neg for Influ A NEG Influenza Type B Antigen Neg for Influ B NEG Influenza Type B (RT-PCR) Neg for Influ B NEG Bedside Lactic Acid Venous 1.25 0.90-1.70 mmol/L Neutrophils (%) (Auto) 74.9 % Lymphocytes (%) (Auto) 11.4 % Monocytes (%) (Auto) 12.8 % Eosinophils (%) (Auto) 0.5 % Basophils (%) (Auto) 0.1 % Neutrophils # (Auto) 7.61 1.4-6.5 K/uL Lymphocytes # (Auto) 1.16 1.2-3.4 K/uL Monocytes # (Auto) 1.30 0.11-0.59 K/uL Eosinophils # (Auto) 0.05 0-0.5 K/uL Basophils # (Auto) 0.01 0-0.2 K/uL Immature Granulocyte % (Auto) 0.3 % Immature Granulocyte # (Auto) 0.03 0.00-0.02 K/uL Microbiology Results 10/28/17 Blood Culture, Received Pending 10/28/17 Blood Culture, Received Pending Impression Assessment and Plan 67 years old man with past medical history of hypertension, dyslipidemia, arthritis and obesity presented to the ED with accidentally found new onset atrial fibrillation when he was visiting his primary care physician for upper respiratory tract infection. Assessment New onset atrial fibrillation with RVR Upper respiratory tract infection Essential Hypertension Dyslipidemia Obesity Clinically suspected obstructive sleep apnea Plan Admit to telemetry Serial cardiac enzymes 2-D echo ordered Had a long discussion with patient about anticoagulation, patient understand benefits and risks, based on his chads score I will initiate heparin drip until seen by rn field Cardiology consult Check TSH level Keep patient on droplet isolation despite of negative rapid flu giving his consistent symptoms with flu Currently borderline hypotensive/normotensive , Hold blood pressure home medications to give room to Cardizem drip Meds can be restarted when his blood pressure is better Advanced Directives Existing Living Will: No Existing Power of Chemical Dependency Attendant: No VTE Prophylaxis VTE Risk Assessment Done? Y/N: Yes Risk Level: Moderate
--- NOTE | 2017-10-28 16:00 | NUR ---
arrived from the ED via liter for admission to room 219, awake and alert, denies discomfort, monitoring manager applied,admission nursing assessment and v.s. complete, code word and fall safety papers completed in ED
--- NOTE | 2017-10-28 16:05 | NUR ---
A: Patient alert and oriented x4. Denies shortness of breath, chest pain, or palpitations. Harsh, non-productive cough noted. Afib on monitor rate 120-130s. Cardizem gtt currently infusing at 5mL/hr. IV intact. Please see EMR for further assessment documentation. Droplet precautions explained to patient, expressed understanding. Call garcias in reach, all needs met before leaving room.
[2017-10-28] MEDS ORDERED: HEPARIN IV BOLUS 7,000 UNIT in SYRINGE 0 ML IV ONE (16:45)
[2017-10-28] MEDS ORDERED: GUAIFENESIN SUGAR FREE 100 MG/5 ML UDC PO PRN (16:45)
[2017-10-28] MEDS: HEPARIN 25,000 UNIT/500ML D5W 500 ML IV PRN (17:35)
[2017-10-28] MEDS: LACTOBACILLUS ACIDOPHILUS (FLORANEX) TAB PO SCH (17:35)
[2017-10-28] MEDS: LEVOFLOXACIN / D5W 500 MG in PREMIXED IN D5W 100 ML IV SCH (17:41)
--- NOTE | 2017-10-28 17:47 | Cardiology Consultation ---
Cardiology Consultation Date of Consultation: Oct 28, 2017. Requesting Physician: Dr. Castro Reason for Consultation: A fib Pt evaluation today including: conversation w/ patient, physical exam, lab review, review of studies, review of inpatient medication list History of Present Illness This is a 67-year-old gentleman who does not have any prior cardiovascular history. He felt that he was coming down with the flu on and has felt poorly since, he describes symptoms of a cough, chest congestion and a runny nose. The symptoms did not resolve therefore he went to see his family physician today who noted that his heart rate was fast and irregular. He was sent to the emergency room and was in atrial fibrillation. He has no awareness of palpitations, he thinks that perhaps the cold medications he was taking caused it but he does not recall it starting. Last time he is seen by a physician was probably April 2017. He is unaware of the arrhythmia in his room. He noticed no difference in exercise ability other then a little bit of shortness of breath over the last week which she attributes to the flulike symptoms he has. In the emergency room he is treated with intravenous diltiazem and intravenous heparin was ordered. His heart rate remains fast (130 bpm) on diltiazem 5 mg per hour. Past Medical/Surgical History (1) H/O shoulder surgery Family History Patient reports no known family medical history. Social History Smoking Status: Former Smoker History of Alcohol Use: No Review of Systems Constitutional: No fever, No weight loss, No weakness Respiratory: + cough, + shortness of breath, No wheezing, No dyspnea on exertion Cardiac: No chest pain, No orthopnea, No PND, No edema, No palpitations Abdomen: No pain, No nausea, No vomiting, No diarrhea, No GI bleeding Male : No urinary frequency, No nocturia more than once/night, No slowing stream, No sexual dysfunction Neurologic: No paralysis, No weakness, No numbness/tingling, No balance problems Heme: No abnormal bleeding/bruising, No clotting problems Endo: No fatigue Skin: No problem reported All Other Systems: Reviewed and Negative Allergies Coded Allergies: Tetanus Toxoid (Verified Allergy, Mild, NUMBNESS, 10/28/17) Acetaminophen (Verified Adverse Reaction, Intermediate, FLUSHING WITH " TOO MUCH TYLENOL", 10/28/17) Sulfa Antibiotics (Verified Adverse Reaction, Intermediate, "PEELED SKIN OFF BOTTOM OF FEET", 10/28/17) Medications Current Inpatient Medications Medications (Trade) Dose Ordered Sig/Rere Route Start Time Stop Time Status Last Admin Dose Admin Simvastatin (Zocor Tab) 20 mg QAM PO 10/29/17 09:00 11/28/17 08:59 Al Hydrox/Mg Hydrox/Simethicone (Maalox Max Susp) 15 ml Q4H PRN PO 10/28/17 13:45 11/27/17 13:44 Magnesium Hydroxide (Milk Of Magnesia Susp) 30 ml Q12H PRN PO 10/28/17 13:45 11/27/17 13:44 Zolpidem Tartrate (Ambien Tab) 5 mg HSZ PRN PO 10/28/17 13:45 11/27/17 13:44 Zolpidem Tartrate (Ambien Tab) 5 mg HSZ PRN PO 10/28/17 13:45 11/27/17 13:44 Ondansetron HCl (Zofran Inj) 4 mg Q6H PRN IV 10/28/17 13:45 11/27/17 13:44 Nitroglycerin (Nitrostat Tab) 0.4 mg UD PRN SL 10/28/17 13:45 11/27/17 13:44 Polyethylene (Miralax Powder Packet) 17 gm DAILY PRN PO 10/28/17 13:45 11/27/17 13:44 Diltiazem HCl 125 mg/Dextrose 125 ml @ 0 mls/hr Q0M PRN IV 10/28/17 14:30 11/27/17 14:29 10/28/17 17:32 10 MLS/HR Ipratropium Hughes (Atrovent 0.02% 0.5MG/2.5ML Neb) 0.5 mg Q8R INH 10/28/17 16:00 11/27/17 15:59 Levofloxacin 500 mg/Prmx 100 ml @ 100 mls/hr Q24H IV 10/28/17 17:00 11/04/17 16:59 Guaifenesin (Robitussin Sugar Free Syrup) 100 mg Q6H PRN PO 10/28/17 16:45 11/27/17 16:44 Lactobacillus Acidophilus (Floranex Tab) 4 tab TIDM PO 10/28/17 16:45 11/27/17 16:44 10/28/17 17:35 4 TAB Heparin Sodium/ Dextrose 500 ml @ 34 mls/hr [id number] PRN IV 10/28/17 16:45 11/27/17 16:44 10/28/17 17:35 34 MLS/HR Physical Exam Vital Signs Past 12 Hours Date Time Temp Pulse Resp B/P (MAP) Pulse Ox O2 Delivery O2 Flow Rate FiO2 10/28/17 17:31 118 136/98 (111) 10/28/17 16:19 37.8 130 20 160/71 (100) 97 Room Air 10/28/17 14:56 131 22 155/88 92 Nasal Cannula 2.0 10/28/17 13:10 92 Nasal Cannula 2.0 10/28/17 12:56 120 20 129/88 92 Nasal Cannula 2.0 10/28/17 11:36 128 10/28/17 11:33 Room Air 10/28/17 11:30 93 Room Air 10/28/17 11:30 94 Room Air 10/28/17 11:30 93 Room Air 10/28/17 11:30 94 Room Air 10/28/17 11:19 130 18 117/81 94 Room Air 10/28/17 11:17 97 Room Air 10/28/17 10:58 37.7 132 20 162/98 97 Room Air Constitutional: General Apperance: heathly-appearing Level of Distress: NAD Psychiatric: Mental Status: active & alert Head: normocephalic Eyes: EOM: EOMI ENMT: normal ENT inspection, hearing grossly normal Neck: supple, no masses Lungs: Respiratory effort: no dyspnea, good air movement Auscultation: breath sounds normal, no wheezing Cardiovascular: Heart Auscultation: no murmurs, no rubs, no gallops, tachycardia, irregular rate rhythm Peripheral Pulses: Bruits: none appreciated Abdomen: Bowel Sounds: normal Inspection & Palpation: soft, no tenderness, guarding & rebound, no masses Musculoskeletal: normal strength (5/5 throughout) Extremities: no edema Neurologic: Cranial Nerves: grossly intact Sensation: grossly intact Data Laboratory Results: Last 24 Hours Test 10/28/17 11:10 10/28/17 12:26 10/28/17 12:44 10/28/17 14:51 White Blood Count 11.73 K/uL 10.16 K/uL Red Blood Count 4.86 M/uL 4.69 M/uL Hemoglobin 14.9 g/dL 14.4 g/dL Hematocrit 44.8 % 43.3 % Mean Corpuscular Volume 92.2 fL 92.3 fL Mean Corpuscular Hemoglobin 30.7 pg 30.7 pg Mean Corpuscular Hemoglobin Concent 33.3 g/dl 33.3 g/dl RDW Standard Deviation 46.3 fL 47.3 fL RDW Coefficient of Variation 13.7 % 13.9 % Platelet Count 239 K/uL 216 K/uL Mean Platelet Volume 10.9 fL 10.2 fL Prothrombin Time 11.3 SECONDS Prothromb Time International Ratio 1.1 Activated Partial Thromboplast Time 27.0 SECONDS Partial Thromboplastin Ratio 1.0 Sodium Level 140 mmol/L Potassium Level 4.1 mmol/L Chloride Level 107 mmol/L Carbon Dioxide Level 27 mmol/L Anion Gap 6.0 mmol/L Blood Urea Nitrogen 12 mg/dl Creatinine 0.85 mg/dl Est Creatinine Clear Calc Drug Dose 111.1 ml/min Estimated GFR () 104.5 Estimated GFR (Non- 90.2 BUN/Creatinine Ratio 13.9 Random Glucose 121 mg/dl Calcium Level 8.7 mg/dl Phosphorus Level 2.4 mg/dl Magnesium Level 2.4 mg/dl Total Bilirubin 0.7 mg/dl Direct Bilirubin 0.3 mg/dl Aspartate Amino Transf (AST/SGOT) 45 U/L Alanine Aminotransferase (ALT/SGPT) 107 U/L Alkaline Phosphatase 78 U/L Total Creatine Kinase 100 U/L Creatine Kinase MB 1.5 ng/ml Creatine Kinase MB Ratio 1.5 Troponin I 0.022 ng/ml Pro-B-Type Natriuretic Peptide 1448 pg/ml Total Protein 6.6 gm/dl Albumin 2.5 gm/dl Globulin 4.1 gm/dl Albumin/Globulin Ratio 0.6 Triglycerides Level 102 mg/dl Cholesterol Level 120 mg/dl HDL Cholesterol 24 mg/dl LDL Cholesterol, Calculated 76 mg/dl VLDL Cholesterol, Calculated 20 mg/dl Cholesterol/HDL Ratio 5.0 Lipase 344 U/L Thyroid Stimulating Hormone (TSH) 0.895 uIu/ml Thyroxine (T4) 9.2 mcg/dl Influenza Type A (RT-PCR) Neg for Influ A Influenza Type A Antigen Neg for Influ A Influenza Type B Antigen Neg for Influ B Influenza Type B (RT-PCR) Neg for Influ B Bedside Lactic Acid Venous 1.25 mmol/L Neutrophils (%) (Auto) 74.9 % Lymphocytes (%) (Auto) 11.4 % Monocytes (%) (Auto) 12.8 % Eosinophils (%) (Auto) 0.5 % Basophils (%) (Auto) 0.1 % Neutrophils # (Auto) 7.61 K/uL Lymphocytes # (Auto) 1.16 K/uL Monocytes # (Auto) 1.30 K/uL Eosinophils # (Auto) 0.05 K/uL Basophils # (Auto) 0.01 K/uL Immature Granulocyte % (Auto) 0.3 % Immature Granulocyte # (Auto) 0.03 K/uL EKG: His electrocardiogram on arrival today at 11:17 AM shows atrial fibrillation with a heart rate of 138 bpm. Telemetry reviewed: Atrial fibrillation, elevated heart rate generally since arrival. Assessment & Plan #1. Atrial fibrillation: He presents in atrial fibrillation but is unaware of the rhythm itself. He presented with flulike symptoms which do sound like flu rather than symptoms of the arrhythmia. I suspect he has no symptoms related to the atrial fibrillation and this could've been present for some time although it is possible it is of recent onset. At the moment I would treat him with rate control and anticoagulation (Cardizem and heparin). If we can achieve heart rate control I would leave him with that and anticoagulation for a month before planning cardioversion if he does not convert on his own. If we have to cardiovert him sooner we will need a LION since we do not know the duration of the arrhythmia. I would like to get an echocardiogram to evaluate his cardiac function and atrial chamber sizes. #2. Flulike symptoms: It sounds as though these are flu symptoms, they do not sound typical of atrial fibrillation. Thank you for allowing me to participate in his care.
[2017-10-28] MEDS: IPRATROPIUM BROMIDE NEB SOLN 0.02% 2.5 ML VIAL INH SCH (19:57)
--- NOTE | 2017-10-28 20:00 | NUR ---
A: Assessment unchanged. See EMR
[2017-10-28 23:44] LABS: PTT PATIENT 39.9 SECONDS (21.0-31.0)
[2017-10-29] VITALS (9 sets, daily range): BP systolic 144–166; BP diastolic 74–108; PULSE 73–109; TEMP 36.5–37.1; O2SAT 94–95
--- NOTE | 2017-10-29 | NUR ---
A: PT remains alert and oriented x4, A-Fib on cardiac tech, denies chest pain or SOB, VSS, heparin infusing at 34ml/hr with Cardizem infusing at 15ml/hr, denies pain, independent in room, droplet precautions R/T flu like symptoms, VIT, DC plan uncertain, assessment compleat.
[2017-10-29] MEDS ORDERED: HEPARIN IV BOLUS 7,000 UNIT in SYRINGE 0 ML IV ONE (01:30)
[2017-10-29] MEDS ORDERED: NURSING VERBAL MED ORDER ONE (02:30)
[2017-10-29] MEDS ORDERED: SODIUM CHLORIDE 0.65% NA SOLN 45 ML (OCEAN) ONE (03:19)
[2017-10-29] MEDS ORDERED: SODIUM CHLORIDE 0.65% NA SOLN 45 ML (OCEAN) PRN (04:00)
--- NOTE | 2017-10-29 04:00 | NUR ---
A: PT remains alert and oriented x4, A-Fib on monitor worker, denies chest pain or SOB, VSS, no complaints at this time, assessment compleat.
[2017-10-29 06:45] LABS: BASO % 0.2 %; BASO ABS # 0.02 K/uL (0-0.2); EOS % 0.6 %; EOS ABS # 0.06 K/uL (0-0.5); HEMATOCRIT 43.8 % (42-52); HEMOGLOBIN 14.3 g/dL (14.0-18.0); IG# 0.05 K/uL (0.00-0.02); LYMPH % 15.5 %; LYMPH ABS # 1.67 K/uL (1.2-3.4); MEAN CELL VOLUME 90.9 fL (80-100); MEAN CORPUSCULAR HEMOGLOBIN 29.7 pg (25-34); MEAN CORPUSCULAR HGB CONC 32.6 g/dl (32-36); MEAN PLATELET VOLUME 10.6 fL (7.4-10.4); MONO ABS # 1.19 K/uL (0.11-0.59); NEUT % 72.2 %; NEUT ABS # 7.78 K/uL (1.4-6.5); PLATELET COUNT 266 K/uL (130-400); RED CELL DISTRIBUTION WIDTH CV 13.6 % (11.5-14.5); RED CELL DISTRIBUTION WIDTH SD 45.2 fL (36.4-46.3); WHITE BLOOD COUNT 10.77 K/uL (4.8-10.8)
[2017-10-29] MEDS: IPRATROPIUM BROMIDE NEB SOLN 0.02% 2.5 ML VIAL INH SCH ×3 (07:00→23:25)
[2017-10-29 07:01] LABS: PTT PATIENT 50.6 SECONDS (21.0-31.0)
[2017-10-29 07:21] LABS: ALBUMIN 2.4 gm/dl (3.4-5.0); CALCIUM 8.5 mg/dl (8.5-10.1); CREATININE 0.7 mg/dl (0.60-1.40); POTASSIUM 3.3 mmol/L (3.5-5.1)
[2017-10-29] MEDS: SIMVASTATIN 20 MG TAB PO SCH (07:21)
[2017-10-29] MEDS: HEPARIN 25,000 UNIT/500ML D5W 500 ML IV PRN (07:21)
[2017-10-29] MEDS: LACTOBACILLUS ACIDOPHILUS (FLORANEX) TAB PO SCH ×3 (07:22→17:01)
[2017-10-29 07:23] LABS: TOTAL PROTEIN 6.6 gm/dl (6.4-8.2)
[2017-10-29] MEDS: DILTIAZEM HCL INJ 125 MG in DEXTROSE 5% 100ML IV PRN ×2 (07:45→17:01)
--- NOTE | 2017-10-29 08:00 | NUR ---
A: Pt. is A&Ox4, denies ADAMS or dizziness. Denies CP or palpitations. Telemetry intact showing a fib in 90s-110s. Cardizem gtt infusing through left AC peripheral at 15 mL/hr. Heparin gtt infusing through left wrist at 41 mL/hr. PTT therapeutic, thus next PTT recheck with tomorrow AM labs. Adequate O2 sats on RA. Dry, non-productive cough present. Tolerating low sodium diet. Voiding in BR or urinal. Independent in room. See EMR for full head to toe assessment. Call garcias within reach, all needs addressed and denies pain. Will continue to closely monitor
[2017-10-29 09:07] LABS: HEMOGLOBIN A1C 5.6 % (4.5-5.6)
[2017-10-29] MEDS ORDERED: POTASSIUM CHLORIDE 10 MEQ TABCR PO ONE (10:00)
--- NOTE | 2017-10-29 11:12 | NUR ---
RD received trigger for MUST, determined to be false. Per pan reclaim processor assessment pt's wt within the past 6 months was 130.9 kg and current wt in EMR is 135.6 kg. This is consistent w/wt gain vs. loss. Please consult RD PRN.
--- NOTE | 2017-10-29 11:34 | NUR ---
Pt. HR sinus tach 130s-140s. BP 92/52, recheck 100/61. Will notify Dr. Marin Addendum: 10/29/17 at 1136 by Anna Ibarra RN CHARTED IN ERROR ON WRONG PATIENT
--- NOTE | 2017-10-29 11:36 | NUR ---
charting below in error on wrong patient.
--- NOTE | 2017-10-29 12:00 | NUR ---
A: Assessment unchanged. Pt. sitting up in chair eating lunch. Discussed with Fátima Morgan to d/c heparin gtt once pt. received PO anticoagulation. Will continue to closely monitor
--- NOTE | 2017-10-29 12:04 | NUR ---
[employer]working [employer] [facility]: Per request of Fátima KEBEDE I contact pt's pharmacy and ask the pharmacist to run "dummy scripts" for Xarelto and Eliquis. The copay for either rx is $40.50/month.
[2017-10-29] MEDS ORDERED: APIXABAN 2.5 MG TAB PO ONE (12:06)
--- NOTE | 2017-10-29 12:24 | Hospitalist Progress Note ---
Hospitalist Progress Note Date of Service Oct 29, 2017. (Fátima Morgan .YANDY) Subjective Pt evaluation today including: conversation w/ patient, physical exam, chart review, lab review, conversation w/ building consultant, review of inpatient medication list Voiding: no voiding problems Mr. Salazar is feeling better, denies chest pain or palpitations or sob. He continues to have a cough with small amount of dark sputum. HR is in the 90s, A.fib on the monitor. ROS Constitutional: no chills, aches, sweats or fever Respiratory: see HPI Cardiac: no chest pain, palpitations, edema, orthopnea or lightheadedness GI: no abdominal pain, nausea, vomiting, diarrhea or constipation : no dysuria or hesitancy Extremities: no joint pain or weakness Skin: no rash All other systems reviewed and negative (Fátima Morgan CRNP) Medications Medications Administered Medications (Trade) Dose Ordered Sig/Rere Route Start Time Stop Time Status Last Admin Dose Admin Sodium Chloride 1,000 ml @ 999 mls/hr Q1H1M STAT IV 10/28/17 12:12 10/28/17 13:12 DC 10/28/17 12:23 999 MLS/HR Simvastatin (Zocor Tab) 20 mg QAM PO 10/29/17 09:00 11/28/17 08:59 10/29/17 07:21 20 MG Diltiazem HCl (Cardizem Inj) 10 mg TODAY@1430 IV 10/28/17 14:30 10/28/17 14:31 DC 10/28/17 14:30 10 MG Diltiazem HCl 125 mg/Dextrose 125 ml @ 0 mls/hr Q0M PRN IV 10/28/17 14:30 11/27/17 14:29 10/29/17 07:45 15 MLS/HR Ipratropium [place] (Atrovent 0.02% 0.5MG/2.5ML Neb) 0.5 mg Q8R INH 10/28/17 16:00 11/27/17 15:59 10/29/17 07:00 0.5 MG Levofloxacin 500 mg/Prmx 100 ml @ 100 mls/hr Q24H IV 10/28/17 17:00 11/04/17 16:59 10/28/17 17:41 100 MLS/HR Lactobacillus Acidophilus (Floranex Tab) 4 tab TIDM PO 10/28/17 16:45 11/27/17 16:44 10/29/17 11:18 4 TAB Heparin Sodium/ Dextrose 500 ml @ 41 mls/hr [id number] PRN IV 10/28/17 16:45 11/27/17 16:44 10/29/17 07:21 41 MLS/HR Heparin Sodium (Porcine) 7000 unit/Syringe 7 ml @ 10 mls/min NOW ONCE IV 10/28/17 16:45 10/28/17 16:46 DC 10/28/17 17:34 10 MLS/MIN Heparin Sodium (Porcine) 7000 unit/Syringe 7 ml @ 10 mls/min NOW ONCE IV 10/29/17 01:30 10/29/17 01:31 DC 10/29/17 01:52 10 MLS/MIN Sodium Chloride (Falls Nasal [place]) 225 sprays STK-MED ONCE .ROUTE 10/29/17 03:19 10/29/17 03:20 DC 10/29/17 04:14 225 SPRAYS Potassium Chloride (Klor-Con M10) 40 meq NOW ONCE PO 10/29/17 10:00 10/29/17 10:20 DC 10/29/17 11:18 40 MEQ (Fátima Morgan, YANDY) Objective Vital Signs Date Time Temp Pulse Resp B/P (MAP) Pulse Ox O2 Delivery O2 Flow Rate FiO2 10/29/17 11:22 36.5 93 20 152/97 (115) 94 Room Air 10/29/17 08:00 Room Air 10/29/17 07:13 36.6 100 20 146/78 (100) 94 Room Air 10/29/17 07:00 109 18 94 Room Air 10/29/17 06:29 152/74 (100) 10/29/17 04:10 37.1 104 19 166/108 (127) 94 Room Air 10/29/17 04:00 Room Air 10/29/17 00:00 Room Air 10/28/17 23:22 37.7 116 18 160/97 (118) 92 Room Air 10/28/17 20:00 90 18 95 Room Air 10/28/17 20:00 Room Air 10/28/17 19:13 126 146/97 (113) 95 Room Air 10/28/17 19:04 36.8 124 24 93 Room Air 10/28/17 18:42 126 156/83 (107) 10/28/17 17:31 118 136/98 (111) 10/28/17 16:19 37.8 130 20 160/71 (100) 97 Room Air 10/28/17 16:00 Room Air 10/28/17 14:56 131 22 155/88 92 Nasal Cannula 2.0 10/28/17 13:10 92 Nasal Cannula 2.0 10/28/17 12:56 120 20 129/88 92 Nasal Cannula 2.0 (Fátima Morgan CRNP) Physical Exam Notes: General: no distress Eyes: normal inspection, PERLL Respiratory: chest non tender,bases coarse on left, expiratory wheeze on right, no respiratory distress, no accessory muscle use Cardiac: irregular rate and rhythm, no rub or gallop, no murmur, no edema, no jvd GI/: active bowel sounds, no abd pain or tenderness, soft, non distended Extremities: normal range of motion, normal strength, non tender Neuro/Psych: alert and oriented x 3, normal mood and affect Skin: normal color, dry (Fátima Morgan CRNP) Laboratory Results Last 24 Hours Test 10/28/17 12:26 10/28/17 12:44 10/28/17 14:51 10/28/17 23:29 Influenza Type A (RT-PCR) Neg for Influ A Influenza Type A Antigen Neg for Influ A Influenza Type B Antigen Neg for Influ B Influenza Type B (RT-PCR) Neg for Influ B Bedside Lactic Acid Venous 1.25 mmol/L White Blood Count 10.16 K/uL Red Blood Count 4.69 M/uL Hemoglobin 14.4 g/dL Hematocrit 43.3 % Mean Corpuscular Volume 92.3 fL Mean Corpuscular Hemoglobin 30.7 pg Mean Corpuscular Hemoglobin Concent 33.3 g/dl Platelet Count 216 K/uL Mean Platelet Volume 10.2 fL Neutrophils (%) (Auto) 74.9 % Lymphocytes (%) (Auto) 11.4 % Monocytes (%) (Auto) 12.8 % Eosinophils (%) (Auto) 0.5 % Basophils (%) (Auto) 0.1 % Neutrophils # (Auto) 7.61 K/uL Lymphocytes # (Auto) 1.16 K/uL Monocytes # (Auto) 1.30 K/uL Eosinophils # (Auto) 0.05 K/uL Basophils # (Auto) 0.01 K/uL RDW Standard Deviation 47.3 fL RDW Coefficient of Variation 13.9 % Immature Granulocyte % (Auto) 0.3 % Immature Granulocyte # (Auto) 0.03 K/uL Activated Partial Thromboplast Time 39.9 SECONDS Partial Thromboplastin Ratio 1.5 Test 10/29/17 06:28 White Blood Count 10.77 K/uL Red Blood Count 4.82 M/uL Hemoglobin 14.3 g/dL Hematocrit 43.8 % Mean Corpuscular Volume 90.9 fL Mean Corpuscular Hemoglobin 29.7 pg Mean Corpuscular Hemoglobin Concent 32.6 g/dl Platelet Count 266 K/uL Mean Platelet Volume 10.6 fL Neutrophils (%) (Auto) 72.2 % Lymphocytes (%) (Auto) 15.5 % Monocytes (%) (Auto) 11.0 % Eosinophils (%) (Auto) 0.6 % Basophils (%) (Auto) 0.2 % Neutrophils # (Auto) 7.78 K/uL Lymphocytes # (Auto) 1.67 K/uL Monocytes # (Auto) 1.19 K/uL Eosinophils # (Auto) 0.06 K/uL Basophils # (Auto) 0.02 K/uL RDW Standard Deviation 45.2 fL RDW Coefficient of Variation 13.6 % Immature Granulocyte % (Auto) 0.5 % Immature Granulocyte # (Auto) 0.05 K/uL Activated Partial Thromboplast Time 50.6 SECONDS Partial Thromboplastin Ratio 1.9 Sodium Level 137 mmol/L Potassium Level 3.3 mmol/L Chloride Level 105 mmol/L Carbon Dioxide Level 25 mmol/L Anion Gap 7.0 mmol/L Blood Urea Nitrogen 8 mg/dl Creatinine 0.70 mg/dl Est Creatinine Clear Calc Drug Dose 148.0 ml/min Estimated GFR () 113.2 Estimated GFR (Non- 97.7 BUN/Creatinine Ratio 12.0 Random Glucose 120 mg/dl Estimated Average Glucose 114 mg/dl Hemoglobin A1c 5.6 % Calcium Level 8.5 mg/dl Magnesium Level 2.2 mg/dl Total Bilirubin 0.8 mg/dl Aspartate Amino Transf (AST/SGOT) 28 U/L Alanine Aminotransferase (ALT/SGPT) 86 U/L Alkaline Phosphatase 76 U/L Total Protein 6.6 gm/dl Albumin 2.4 gm/dl Globulin 4.2 gm/dl Albumin/Globulin Ratio 0.6 (Fátima Morgan CRNP) Assessment and Plan Mr. Salazar is a 67 year old man here for A.fib RVR and pneumonia A.fib RVR - heart rate controlled - transition to po diltiazem 240 daily and Eliquis - per cardiology, will evaluate for cardioversion after about a month of anticoagulation - continue tele monitoring for now - TSH wnl, potassium 3.3 Hypokalemia - replaced. PNA - may have an element of fluid overload as BNP was 1448 - echo pending, Echo in 2012 was normal with EF 60% - continue levaquin, nebs DVT proph Eliquis Full code (Fátima Morgan ., YANDY) I agree with YANDY assessment and plan and have seen and examined pt myself Labs reviewed Noted RVR in AM Resting comfortably in bed Rate controlled, switch to PO and add eliquis Appreciate cardiology recs at this time (Jaylan Marin D.O.)
--- NOTE | 2017-10-29 12:26 | ECHOCARDIOGRAM REPORT ---
*NOTICE TO RECEIVING DEMOCRAT AGENCY This information is strictly Confidential and protected under [place] law. [place] law prohibits you from making any further disclosure of this information unless further disclosure is expressly permitted by the written consent of the person to whom it pertains or is authorized by law. A general authorization for the release of medical or other information is not sufficient for this purpose. Hospital accepts no responsibility if the information is made available to any other person, INCLUDING THE PATIENT. Interpretation Summary * Name: SEBASTIEN BYRD Study Date: 10/29/2017 08:30 AM BP: 146/78 mmHg * Patient Location: C.2T\S\E219\S\1 HR: 100 * : 1950 (M/d/yyyy) Gender: Male Height: 72 in * Age: 67 yrs Ethnicity: [place] Weight: 295 lb * Ordering Physician: Mady Gill * Referring Physician: Lupe Thibodeaux D.O. * Performed By: Chintan Ch R[facility] * * Reason For Study: A-FIB * BSA: 2.5 m2 * -- Conclusions -- * The left ventricle is hyperdynamic. * Borderline left atrial enlargement. * Right ventricular systolic pressure is normal. * Borderline aortic root dilatation. * The inferior vena cava is mildly dilated. * Compared to an echocardiogram obtained on 05/28/2013, there is no significant change Procedure Details * A complete two-dimensional transthoracic echocardiogram was performed (2D, M-mode, Doppler and color flow Doppler). * A contrast injection of Definity was performed to improve assessment of LV function. * Contrast was injected into an intravenous site in the left arm. * One vial of Definity ultrasound contrast was diluted in normal saline to a total volume of 10 ml. A total of '2' ml of solution was administered during imaging. * Lot # [id number] of Definity utilized for procedure. * Expiration date . * The attending nurse who injected the contrast agent was Mary Ibarra RN. Left Ventricle * The left ventricle is normal in size. * There is normal left ventricular wall thickness. * Ejection Fraction = >70 %. * The left ventricle is hyperdynamic. * The left ventricular wall motion is normal. Right Ventricle * The right ventricle is normal in size and function. * The right ventricular systolic function is normal as assessed by tricuspid annular plane systolic excursion (TAPSE) (normal >1.5 cm). Atria * Borderline left atrial enlargement. * Right atrial size is normal. Mitral Valve * The mitral valve anatomy is normal. * Significant mitral regurgitation is absent. Tricuspid Valve * The tricuspid valve is not well visualized, but is grossly normal. * There is trace tricuspid regurgitation. * Right ventricular systolic pressure is normal. Aortic Valve * The aortic valve is normal in structure and function. * No hemodynamically significant valvular aortic stenosis. * There is no significant aortic regurgitation. Great Vessels * Borderline aortic root dilatation. * The aortic root appears calcified Pericardium/Pleural * There is no pericardial effusion. Great Vessels * The inferior vena cava is mildly dilated. MMode 2D Measurements and Calculations IVSd 1.1 cm IVSs 1.6 cm LVIDd 4.8 cm LVIDs 3.1 cm LVPWd 1.2 cm LVPWs 1.5 cm IVS/LVPW 0.97 FS 34.3 % EDV(Teich) 106.9 ml ESV(Teich) 39.3 ml EF(Teich) 63.2 % EDV(cubed) 109.7 ml ESV(cubed) 31.1 ml EF(cubed) 71.6 % % IVS thick 40.5 % % LVPW thick 29.1 % LV mass(C)d 203.6 grams LV mass(C)dI 81.0 grams/m\S\2 LV mass(C)s 175.2 grams LV mass(C)sI 69.7 grams/m\S\2 CO(Teich) 5.9 l/min CI(Teich) 2.3 l/min/m\S\2 SV(Teich) 67.6 ml SI(Teich) 26.9 ml/m\S\2 CO(cubed) 6.8 l/min CI(cubed) 2.7 l/min/m\S\2 SV(cubed) 78.6 ml SI(cubed) 31.3 ml/m\S\2 Ao root diam 3.9 cm Ao root area 11.8 cm\S\2 ACS 2.2 cm LA dimension 4.0 cm asc Aorta Diam 3.2 cm LA/Ao 1.0 LVAd ap4 36.2 cm\S\2 LVLd ap4 9.4 cm EDV(MOD-sp4) 113.0 ml LVAs ap4 17.3 cm\S\2 LVLs ap4 8.3 cm ESV(MOD-sp4) 30.4 ml EF(MOD-sp4) 73.1 % LVAd ap2 30.9 cm\S\2 LVLd ap2 8.6 cm EDV(MOD-sp2) 90.7 ml LVAs ap2 19.7 cm\S\2 LVLs ap2 7.1 cm ESV(MOD-sp2) 46.7 ml EF(MOD-sp2) 48.5 % CO(MOD-sp4) 7.2 l/min CI(MOD-sp4) 2.9 l/min/m\S\2 SV(MOD-sp4) 82.6 ml SI(MOD-sp4) 32.9 ml/m\S\2 CO(MOD-sp2) 3.8 l/min CI(MOD-sp2) 1.5 l/min/m\S\2 SV(MOD-sp2) 44.0 ml SI(MOD-sp2) 17.5 ml/m\S\2 Doppler Measurements and Calculations MV E max chapis 107.4 cm/sec MV P1/2t max chapis 117.9 cm/sec MV P1/2t 60.6 msec MVA(P1/2t) 3.6 cm\S\2 MV dec slope 569.7 cm/sec\S\2 MV dec time 0.19 sec Ao V2 max 145.8 cm/sec Ao max PG 8.5 mmHg Ao max PG (full) 2.4 mmHg LV V1 max PG 6.1 mmHg LV V1 max 124.0 cm/sec PA V2 max 84.3 cm/sec PA max PG 2.9 mmHg TR max chapis 175.5 cm/sec
--- NOTE | 2017-10-29 13:07 | NUR ---
Administered PO Eliquis and d/c'ed heparin gtt per order
--- NOTE | 2017-10-29 16:00 | NUR ---
A: Pt. A&OX4, denies any complaints. A fib on monitor 90s-100s. No CP or palpitations. Cardizem infusing through left AC IV at 15 mL/hr. To be d/c'ed next AM 1 hour after PO cardizem dose. Heparin gtt d/c'ed today around 1300. Started on PO Eliquis, as stated in previous note. Denies SOB or difficulty breathing on RA. Tolerating diet. Voiding in BR. Call garcias within reach, all needs addressed and denies pain. at bedside. Will continue to closely monitor
[2017-10-29] MEDS: LEVOFLOXACIN / D5W 500 MG in PREMIXED IN D5W 100 ML IV SCH (17:01)
--- NOTE | 2017-10-29 17:05 | Cardiology Follow-Up ---
Subjective Date of Service: Oct 29, 2017. Pt evaluation today including: conversation w/ patient, conversation w/ family , physical exam, lab review, review of studies, review of inpatient medication list, conversation w/ attending History of Present Illness This is a 67-year-old gentleman who does not have any prior cardiovascular history. He felt that he was coming down with the flu on and has felt poorly since, he describes symptoms of a cough, chest congestion and a runny nose. The symptoms did not resolve therefore he went to see his family physician who noted that his heart rate was fast and irregular. He was sent to the emergency room and was in atrial fibrillation. He has no awareness of palpitations, he thinks that perhaps the cold medications he was taking caused it but he does not recall it starting. Last time he was seen by a physician was probably April 2017. He noticed no difference in exercise ability other then a little bit of shortness of breath over the last week which he attributes to the flulike symptoms he has. In the emergency room he is treated with intravenous diltiazem and intravenous heparin was ordered. His diltiazem was titrated up to 15 mg per hour. He was started on heparin, however has been transitioned to Eliquis. Today he feels well, he has no awareness of his arrhythmia and is not having palpitations or sensation of irregularity. He is flulike symptoms seem improved. Social History Smoking Status: Former Smoker History of Alcohol Use: No Review of Systems Respiratory: + cough, + shortness of breath, No wheezing, No dyspnea on exertion Cardiac: No chest pain, No orthopnea, No PND, No edema, No palpitations Medications Cardiovascular: Item Value Date Time Diltiazem HCl 240 mg 10/30/17 0900 (Dilacor Xr Cap) QAM/PO Apixaban 5 mg 10/29/17 2100 (Eliquis Tab) BID/PO Simvastatin 20 mg 10/29/17 0900 (Zocor Tab) QAM/PO 10/29/17 0721 Objective Vital Signs Past 12 Hours Date Time Temp Pulse Resp B/P (MAP) Pulse Ox O2 Delivery O2 Flow Rate FiO2 10/29/17 15:24 36.9 97 18 147/91 (109) 95 Room Air 10/29/17 14:35 73 18 94 Room Air 10/29/17 12:00 Room Air 10/29/17 11:22 36.5 93 20 152/97 (115) 94 Room Air 10/29/17 08:00 Room Air 10/29/17 07:13 36.6 100 20 146/78 (100) 94 Room Air 10/29/17 07:00 109 18 94 Room Air 10/29/17 06:29 152/74 (100) Last Recorded Weight-Kilograms: 135.600 Intake & Output 8-Hour Column 10/29/17 10/30/17 10/30/17 16:00 00:00 08:00 Intake Total 797 ml Balance 797 ml 24-Hour Column 10/30/17 08:00 Intake Total 797 ml Balance 797 ml Physical Exam Constitutional: General Apperance: heathly-appearing Level of Distress: NAD Lungs: Respiratory effort: no dyspnea, good air movement Auscultation: breath sounds normal, no wheezing Cardiovascular: Heart Auscultation: no murmurs, no rubs, no gallops, irregular rate rhythm Peripheral Pulses: Bruits: none appreciated Extremities: no edema Data Laboratory Results: Last 24 Hours Test 10/28/17 23:29 10/29/17 06:28 Activated Partial Thromboplast Time 39.9 SECONDS 50.6 SECONDS Partial Thromboplastin Ratio 1.5 1.9 White Blood Count 10.77 K/uL Red Blood Count 4.82 M/uL Hemoglobin 14.3 g/dL Hematocrit 43.8 % Mean Corpuscular Volume 90.9 fL Mean Corpuscular Hemoglobin 29.7 pg Mean Corpuscular Hemoglobin Concent 32.6 g/dl Platelet Count 266 K/uL Mean Platelet Volume 10.6 fL Neutrophils (%) (Auto) 72.2 % Lymphocytes (%) (Auto) 15.5 % Monocytes (%) (Auto) 11.0 % Eosinophils (%) (Auto) 0.6 % Basophils (%) (Auto) 0.2 % Neutrophils # (Auto) 7.78 K/uL Lymphocytes # (Auto) 1.67 K/uL Monocytes # (Auto) 1.19 K/uL Eosinophils # (Auto) 0.06 K/uL Basophils # (Auto) 0.02 K/uL RDW Standard Deviation 45.2 fL RDW Coefficient of Variation 13.6 % Immature Granulocyte % (Auto) 0.5 % Immature Granulocyte # (Auto) 0.05 K/uL Sodium Level 137 mmol/L Potassium Level 3.3 mmol/L Chloride Level 105 mmol/L Carbon Dioxide Level 25 mmol/L Anion Gap 7.0 mmol/L Blood Urea Nitrogen 8 mg/dl Creatinine 0.70 mg/dl Est Creatinine Clear Calc Drug Dose 148.0 ml/min Estimated GFR () 113.2 Estimated GFR (Non- 97.7 BUN/Creatinine Ratio 12.0 Random Glucose 120 mg/dl Estimated Average Glucose 114 mg/dl Hemoglobin A1c 5.6 % Calcium Level 8.5 mg/dl Magnesium Level 2.2 mg/dl Total Bilirubin 0.8 mg/dl Aspartate Amino Transf (AST/SGOT) 28 U/L Alanine Aminotransferase (ALT/SGPT) 86 U/L Alkaline Phosphatase 76 U/L Total Protein 6.6 gm/dl Albumin 2.4 gm/dl Globulin 4.2 gm/dl Albumin/Globulin Ratio 0.6 Imaging: An echocardiogram shows normal left ventricular size and function Telemetry reviewed: Atrial fibrillation since admission, the heart rate is gradually coming under control but still remains somewhat fast at times. Assessment and Plan #1. Atrial fibrillation: He remains in atrial fibrillation, the heart rate is improved on diltiazem but still somewhat fast. I'm concerned that it will increase significantly if he is active. He remains unaware of the arrhythmia. He is tolerating Eliquis well, with no evidence of bleeding and no side effects. I would like to increase his rate control medication somewhat, I am going to add a low-dose beta-blockade to his regimen. My plan would be to continue anticoagulation and beta-blockade for about a month and then consider cardioversion if he remains in atrial fibrillation. [place] is going [place] of the [place] at the end of October and it would probably be better to wait until he comes back before performing cardioversion, rather than doing it right this he is leaving the country. #2. Flulike symptoms: It sounds as though these are flu symptoms, they do not sound typical of atrial fibrillation although they seem to have improved with treatment of his atrial arrhythmia. Thank you for allowing me to participate in his care.
--- NOTE | 2017-10-29 20:00 | NUR ---
a: Full head to toe assessment completed at this time. youth nutritional monitor intact, displaying afib, rate 110s. Cardizem gtt infusing at 15ml/hr. Denies any complaints. Lungs diminished on room air. +1 BLE edema. Patient is sitting OOB in chair. Patient denies complaints. Refer to EMR for full assessment details. Call garcias and bedside table are within reach. Will continue to monitor patient closely.
[2017-10-29] MEDS: METOPROLOL TARTRATE 25 MG TAB PO SCH (20:05)
[2017-10-29] MEDS: APIXABAN 2.5 MG TAB PO SCH (20:05)
[2017-10-30] VITALS (8 sets, daily range): BP systolic 143–161; BP diastolic 69–93; PULSE 84–102; TEMP 36.5–37; O2SAT 93–96
--- NOTE | 2017-10-30 00:01 | NUR ---
a: Reassessment completed at this time. Patient given ambien around 2200 per request. Side effects of unusual behavior and confusion explained to patient. Made aware that bed alarm would be placed on for the night for safety. Remains afib on monitor. Denies any pain. Cardizem gtt infusing at 15ml/hr. Refer to EMR for full assessment details. Call garcias and bedside table are within reach. Will continue to monitor patient closely.
[2017-10-30] MEDS: DILTIAZEM HCL INJ 125 MG in DEXTROSE 5% 100ML IV PRN (00:56)
--- NOTE | 2017-10-30 04:00 | NUR ---
a: Reassessment completed at this time. Patient independent in room. No confusion noted from Ambien given last night. Denies issues. Afib on monitor. Mostly 100s. IV Cardizem infusing per order. Patient denies needs. Refer to EMR for full assessment details. Call garcias and bedside table are within reach. Will continue to monitor patient closely.
[2017-10-30] MEDS: IPRATROPIUM BROMIDE NEB SOLN 0.02% 2.5 ML VIAL INH SCH ×2 (07:06→14:31)
[2017-10-30 07:40] LABS: PTT PATIENT 30.6 SECONDS (21.0-31.0)
[2017-10-30] MEDS: SIMVASTATIN 20 MG TAB PO SCH (08:07)
[2017-10-30] MEDS: LACTOBACILLUS ACIDOPHILUS (FLORANEX) TAB PO SCH ×3 (08:07→16:45)
[2017-10-30] MEDS: APIXABAN 2.5 MG TAB PO SCH ×2 (08:08→18:01)
[2017-10-30] MEDS: METOPROLOL TARTRATE 25 MG TAB PO SCH ×2 (08:09→18:02)
[2017-10-30] MEDS ORDERED: POTASSIUM CHLORIDE 10 MEQ TABCR PO STA (08:11)
--- NOTE | 2017-10-30 08:15 | NUR ---
PATIENT ASSESSED, DENIED DISCOMFORTS, SOB, IS EAGER FOR DISCHARGE. CARDIZEM GTT CONTINUED AT THIS TIME BUT PO CARDIZEM INITIATED PER EMAR. REMAINED IN AFIB AT THIS TIME. HR 90S AT REST.
[2017-10-30] MEDS ORDERED: DILTIAZEM HCL 120 MG ER CAP PO SCH (09:00)
[2017-10-30 09:40] LABS: HEMATOCRIT 43.6 % (42-52); HEMOGLOBIN 14.4 g/dL (14.0-18.0); MEAN CELL VOLUME 91.4 fL (80-100); MEAN CORPUSCULAR HEMOGLOBIN 30.2 pg (25-34); MEAN PLATELET VOLUME 10.3 fL (7.4-10.4); PLATELET COUNT 290 K/uL (130-400); RED CELL DISTRIBUTION WIDTH CV 13.7 % (11.5-14.5); RED CELL DISTRIBUTION WIDTH SD 45.3 fL (36.4-46.3); WHITE BLOOD COUNT 9.43 K/uL (4.8-10.8)
[2017-10-30 09:58] LABS: CALCIUM 8.7 mg/dl (8.5-10.1); CREATININE 0.77 mg/dl (0.60-1.40); POTASSIUM 3.9 mmol/L (3.5-5.1)
--- NOTE | 2017-10-30 11:20 | Hospitalist Progress Note ---
Hospitalist Progress Note Date of Service Oct 30, 2017. Subjective Pt evaluation today including: conversation w/ patient, physical exam, chart review, lab review, review of inpatient medication list Voiding: no voiding problems Mr. Salazar feels better today, continues to have mild cough. Denies dizziness or sob when moving around the room. Heart rate has been 100-110, transitioned to po diltiazem this morning. ROS Constitutional: no chills, aches, sweats or fever Respiratory: no sob, sputum, or wheezing Cardiac: no chest pain, palpitations, edema, orthopnea or lightheadedness GI: no abdominal pain, nausea, vomiting, diarrhea or constipation : no dysuria or hesitancy Extremities: no joint pain or weakness Skin: no rash All other systems reviewed and negative Medications Medications Administered Medications (Trade) Dose Ordered Sig/Rere Route Start Time Stop Time Status Last Admin Dose Admin Sodium Chloride 1,000 ml @ 999 mls/hr Q1H1M STAT IV 10/28/17 12:12 10/28/17 13:12 DC 10/28/17 12:23 999 MLS/HR Simvastatin (Zocor Tab) 20 mg QAM PO 10/29/17 09:00 11/28/17 08:59 10/30/17 08:07 20 MG Zolpidem Tartrate (Ambien Tab) 5 mg HSZ PRN PO 10/28/17 13:45 11/27/17 13:44 10/29/17 22:30 5 MG Diltiazem HCl (Cardizem Inj) 10 mg TODAY@1430 IV 10/28/17 14:30 10/28/17 14:31 DC 10/28/17 14:30 10 MG Diltiazem HCl 125 mg/Dextrose 125 ml @ 0 mls/hr Q0M PRN IV 10/28/17 14:30 10/30/17 10:00 DC 10/30/17 00:56 15 MLS/HR Ipratropium [place] (Atrovent 0.02% 0.5MG/2.5ML Neb) 0.5 mg Q8R INH 10/28/17 16:00 11/27/17 15:59 10/30/17 07:06 0.5 MG Levofloxacin 500 mg/Prmx 100 ml @ 100 mls/hr Q24H IV 10/28/17 17:00 11/04/17 16:59 10/29/17 17:01 100 MLS/HR Lactobacillus Acidophilus (Floranex Tab) 4 tab TIDM PO 10/28/17 16:45 11/27/17 16:44 10/30/17 08:07 4 TAB Heparin Sodium/ Dextrose 500 ml @ 41 mls/hr [id number] PRN IV 10/28/17 16:45 10/29/17 12:39 DC 10/29/17 07:21 41 MLS/HR Heparin Sodium (Porcine) 7000 unit/Syringe 7 ml @ 10 mls/min NOW ONCE IV 10/28/17 16:45 10/28/17 16:46 DC 10/28/17 17:34 10 MLS/MIN Heparin Sodium (Porcine) 7000 unit/Syringe 7 ml @ 10 mls/min NOW ONCE IV 10/29/17 01:30 10/29/17 01:31 DC 10/29/17 01:52 10 MLS/MIN Sodium Chloride ([place] Nasal [place]) 225 sprays STK-MED ONCE .ROUTE 10/29/17 03:19 10/29/17 03:20 DC 10/29/17 04:14 225 SPRAYS Potassium Chloride (Klor-Con M10) 40 meq NOW ONCE PO 10/29/17 10:00 10/29/17 10:20 DC 10/29/17 11:18 40 MEQ Diltiazem HCl (Dilacor Xr Cap) 240 mg QAM PO 10/30/17 09:00 11/29/17 08:59 10/30/17 08:09 240 MG Apixaban (Eliquis Tab) 5 mg BID PO 10/29/17 21:00 11/28/17 20:59 10/30/17 08:08 5 MG Apixaban (Eliquis Tab) 5 mg 1206 ONCE PO 10/29/17 12:06 10/29/17 12:37 DC 10/29/17 13:05 5 MG Miscellaneous (Stop Order) 1 ea ONE ONCE N/A 10/29/17 12:45 10/29/17 12:46 DC 10/29/17 13:06 1 EA Metoprolol Tartrate (Lopressor Tab) 25 mg BID PO 10/29/17 21:00 11/28/17 20:59 10/30/17 08:09 25 MG Potassium Chloride (Klor-Con M10) 20 meq NOW STAT PO 10/30/17 08:11 10/30/17 08:26 DC 10/30/17 10:31 20 MEQ Objective Vital Signs Date Time Temp Pulse Resp B/P (MAP) Pulse Ox O2 Delivery O2 Flow Rate FiO2 10/30/17 08:00 Room Air 10/30/17 07:21 36.8 102 20 161/69 (99) 95 Room Air 10/30/17 07:06 97 18 96 Room Air 10/30/17 04:15 36.9 100 18 144/92 (109) 94 10/30/17 04:00 Room Air 10/30/17 00:01 Room Air 10/30/17 00:01 37.0 84 18 147/91 (109) 93 Room Air 10/29/17 23:27 89 18 95 Room Air 10/29/17 20:00 Room Air 10/29/17 19:05 37.0 102 20 144/79 (100) 95 Room Air 10/29/17 16:00 Room Air 10/29/17 15:24 36.9 97 18 147/91 (109) 95 Room Air 10/29/17 14:35 73 18 94 Room Air 10/29/17 12:00 Room Air 10/29/17 11:22 36.5 93 20 152/97 (115) 94 Room Air Physical Exam Notes: General: no distress Eyes: normal inspection, PERLL Respiratory: chest non tender, clear to auscultation, normal breath sounds, no respiratory distress, no accessory muscle use Cardiac: irregular rate and rhythm, no rub or gallop, no murmur, no edema, no jvd GI/: active bowel sounds, no abd pain or tenderness, soft, non distended Extremities: normal range of motion, normal strength, non tender Neuro/Psych: alert and oriented x 3, normal mood and affect Skin: normal color, dry Laboratory Results Last 24 Hours Test 10/30/17 07:04 10/30/17 07:06 White Blood Count 9.43 K/uL Red Blood Count 4.77 M/uL Hemoglobin 14.4 g/dL Hematocrit 43.6 % Mean Corpuscular Volume 91.4 fL Mean Corpuscular Hemoglobin 30.2 pg Mean Corpuscular Hemoglobin Concent 33.0 g/dl RDW Standard Deviation 45.3 fL RDW Coefficient of Variation 13.7 % Platelet Count 290 K/uL Mean Platelet Volume 10.3 fL Sodium Level 137 mmol/L Potassium Level 3.9 mmol/L Chloride Level 106 mmol/L Carbon Dioxide Level 27 mmol/L Anion Gap 4.0 mmol/L Blood Urea Nitrogen 10 mg/dl Creatinine 0.77 mg/dl Est Creatinine Clear Calc Drug Dose 134.3 ml/min Estimated GFR () 108.8 Estimated GFR (Non- 93.9 BUN/Creatinine Ratio 12.6 Random Glucose 115 mg/dl Calcium Level 8.7 mg/dl Activated Partial Thromboplast Time 30.6 SECONDS Partial Thromboplastin Ratio 1.2 Assessment and Plan Mr. Salazar is a 67 year old man here for A.fib RVR and pneumonia A.fib RVR - heart rate controlled - transition to po diltiazem 240 daily this am and Eliquis started yesterday, cardiology also started metoprolol - per cardiology, will evaluate for cardioversion after about a month of anticoagulation - continue tele monitoring for now - TSH wnl Hypokalemia - replaced. PNA - may have an element of fluid overload as BNP was 1448 - Echo did not show any significant changes from the last in 2012, EF 70% - Levaquin changed to po - last day 11/01 for five days of treatment, continue nebs - BC negative DVT proph Eliquis Full code
--- NOTE | 2017-10-30 11:45 | NUR ---
PATIENT REASSESSED. CARDIZEM GTT OFF SINCE THIS MORNING. REMAINS IN AFIB 90S AT THIS TIME. PATIENT CONTINUED TO DENY DISCOMFORTS, SOB ON ROOM AIR O2.
--- NOTE | 2017-10-30 13:41 | NUR ---
PATIENT AMBULATED FOR APPROX 5 MIN AROUND NURSING UNIT. 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 ACTIVITY WELL TOLERATED. YANDY SUMNER MADE AWARE.
--- NOTE | 2017-10-30 14:25 | Cardiology Follow-Up ---
Subjective Date of Service: Oct 30, 2017. Pt evaluation today including: conversation w/ patient, conversation w/ family , physical exam, lab review, review of studies, review of inpatient medication list, conversation w/ attending History of Present Illness This is a 67-year-old gentleman who does not have any prior cardiovascular history. He felt that he was coming down with the flu on and has felt poorly since, he describes symptoms of a cough, chest congestion and a runny nose. The symptoms did not resolve therefore he went to see his family physician who noted that his heart rate was fast and irregular. He was sent to the emergency room and was in atrial fibrillation. He has no awareness of palpitations, he thinks that perhaps the cold medications he was taking caused it but he does not recall it starting. Last time he was seen by a physician was probably April 2017. He noticed no difference in exercise ability other then a little bit of shortness of breath over the last week which he attributes to the flulike symptoms he has. In the emergency room he is treated with intravenous diltiazem and intravenous heparin was ordered. His diltiazem was titrated up to 15 mg per hour. He was started on heparin, however has been transitioned to Eliquis. He feels very well today, no palpitations or chest symptoms. He has been walking around. Social History Smoking Status: Former Smoker History of Alcohol Use: No Review of Systems Respiratory: No cough, No wheezing, No shortness of breath, No dyspnea on exertion Cardiac: No chest pain, No orthopnea, No PND, No edema, No palpitations Medications Cardiovascular: Item Value Date Time Diltiazem HCl 240 mg 10/30/17 0900 (Dilacor Xr Cap) QAM/PO 10/30/17 0809 Apixaban 5 mg 10/29/17 2100 (Eliquis Tab) BID/PO 10/30/17 0808 Metoprolol 25 mg 10/29/17 2100 Tartrate BID/PO 10/30/17 0809 (Lopressor Tab) Simvastatin 20 mg 10/29/17 0900 (Zocor Tab) QAM/PO 10/30/17 0807 Objective Vital Signs Past 12 Hours Date Time Temp Pulse Resp B/P (MAP) Pulse Ox O2 Delivery O2 Flow Rate FiO2 10/30/17 11:30 Room Air 10/30/17 10:48 36.5 91 20 143/93 (110) 96 Room Air 10/30/17 08:00 Room Air 10/30/17 07:21 36.8 102 20 161/69 (99) 95 Room Air 10/30/17 07:06 97 18 96 Room Air 10/30/17 04:15 36.9 100 18 144/92 (109) 94 10/30/17 04:00 Room Air Last Recorded Weight-Kilograms: 135.100 Physical Exam Constitutional: General Apperance: heathly-appearing Level of Distress: NAD Lungs: Respiratory effort: no dyspnea, good air movement Auscultation: breath sounds normal, no wheezing Cardiovascular: Heart Auscultation: no murmurs, no rubs, no gallops, irregular rate rhythm Peripheral Pulses: Bruits: none appreciated Extremities: no edema Data Laboratory Results: Last 24 Hours Test 10/30/17 07:04 10/30/17 07:06 White Blood Count 9.43 K/uL Red Blood Count 4.77 M/uL Hemoglobin 14.4 g/dL Hematocrit 43.6 % Mean Corpuscular Volume 91.4 fL Mean Corpuscular Hemoglobin 30.2 pg Mean Corpuscular Hemoglobin Concent 33.0 g/dl RDW Standard Deviation 45.3 fL RDW Coefficient of Variation 13.7 % Platelet Count 290 K/uL Mean Platelet Volume 10.3 fL Sodium Level 137 mmol/L Potassium Level 3.9 mmol/L Chloride Level 106 mmol/L Carbon Dioxide Level 27 mmol/L Anion Gap 4.0 mmol/L Blood Urea Nitrogen 10 mg/dl Creatinine 0.77 mg/dl Est Creatinine Clear Calc Drug Dose 134.3 ml/min Estimated GFR () 108.8 Estimated GFR (Non- 93.9 BUN/Creatinine Ratio 12.6 Random Glucose 115 mg/dl Calcium Level 8.7 mg/dl Activated Partial Thromboplast Time 30.6 SECONDS Partial Thromboplastin Ratio 1.2 Telemetry reviewed: He remains in atrial fibrillation, his heart rate has improved significantly on his current regimen. It is still somewhat elevated with activities but not excessively and I think the current rate is acceptable. Assessment and Plan #1. Atrial fibrillation: He remains in atrial fibrillation, his heart rate I believe is acceptably well controlled for now. I would send him home on his current regimen including his calcium javier, beta javier and eliquis. If he needs eliquis we could have him hot die picker samples in our office. I am scheduling him for follow-up in 2 weeks, I will put that in his discharge. I will also quit contact information for our practice. Thank you for allowing me to participate in his care.
[2017-10-30] MEDS ORDERED: DLCSR120 PO (14:29)
[2017-10-30] MEDS ORDERED: LPR25 PO (14:29)
[2017-10-30] MEDS ORDERED: ELQ25 PO (14:29)
[2017-10-30] MEDS ORDERED: LVQ500 PO (14:29)
--- NOTE | 2017-10-30 14:30 | Discharge Instructions ---
Discharge Instructions Date of Service Oct 30, 2017. Admission Reason for Admission: New Onset A-Fib Discharge Discharge Diagnosis / Problem: persistent atrial fibrillation Discharge Goals Goal(s): Improve disease control Activity Recommendations Activity Limitations: per Instructions/Follow-up section . Instructions / Follow-Up Instructions / Follow-Up Do not perform strenuous activity, normal activity is acceptable. Contact cardiology at [phone] if needed. Follow-up with Dr. Foley on 11/11/2017 at 9:30 AM. Current Hospital Diet Patient's current hospital diet: Low Sodium Diet (2gm Na) Discharge Diet Recommended Diet: N/A Pending Studies Studies pending at discharge: no Laboratory Results Hemoglobin A1c Test 10/29/17 06:28 Range/Units Estimated Average Glucose 114 mg/dl Hemoglobin A1c 5.6 4.5-5.6 % Lipid Panel Test 10/28/17 11:10 Range/Units Triglycerides Level 102 0-150 mg/dl Cholesterol Level 120 0-200 mg/dl HDL Cholesterol 24 mg/dl Cholesterol/HDL Ratio 5.0 LDL Cholesterol, Calculated 76 mg/dl Medical Emergencies . Who to Call and When: Medical Emergencies: If at any time you feel your situation is an emergency, please call 911 immediately. . Non-Emergent Contact Non-Emergency issues call your: Primary Care Provider . . "Provider Documentation" section prepared by Melvin Foley. . VTE Core Measure Inpt VTE Proph given/why not?: Other Anticoagulation
--- NOTE | 2017-10-30 14:37 | Discharge Instructions ---
Discharge Instructions Date of Service Oct 30, 2017. Admission Reason for Admission: New Onset A-Fib Discharge Discharge Diagnosis / Problem: new onset A.fib Discharge Goals Goal(s): Improve function, Improve disease control Activity Recommendations Activity Limitations: resume your previous activity Exercise/Sports Limitations: as tolerated . Instructions / Follow-Up Instructions / Follow-Up Please follow up with cardiology within about a week. Please follow up with your primary care provider within about a week. Current Hospital Diet Patient's current hospital diet: Low Sodium Diet (2gm Na) Discharge Diet Recommended Diet: AHA Diet (Heart Healthy), Low Sodium Diet (2gm Na) Procedures Procedures Performed: chest x ray Pending Studies Studies pending at discharge: no Laboratory Results Hemoglobin A1c Test 10/29/17 06:28 Range/Units Estimated Average Glucose 114 mg/dl Hemoglobin A1c 5.6 4.5-5.6 % Lipid Panel Test 10/28/17 11:10 Range/Units Triglycerides Level 102 0-150 mg/dl Cholesterol Level 120 0-200 mg/dl HDL Cholesterol 24 mg/dl Cholesterol/HDL Ratio 5.0 LDL Cholesterol, Calculated 76 mg/dl Medical Emergencies . Who to Call and When: Medical Emergencies: If at any time you feel your situation is an emergency, please call 911 immediately. . Non-Emergent Contact Non-Emergency issues call your: Primary Care Provider, Electrical Tester Battery Call Non-Emergent contact if: you have any medication questions . Past History Medical & Surgical History: (1) New onset a-fib (2) HTN (hypertension) (3) Influenza-like illness . "Provider Documentation" section prepared by Fátima Morgan. . VTE Core Measure Inpt VTE Proph given/why not?: Other Anticoagulation
--- NOTE | 2017-10-30 14:56 | Discharge Summary ---
Discharge Summary Date of Service Oct 30, 2017. Discharge Summary Admission Date: Oct 28, 2017 at 13:55 Discharge Date: Oct 30, 2017 Discharge Disposition: Home Principal Diagnosis: new onset A.fib with RVR Problems/Secondary Diagnoses: Hypokalemia, PNA/viral illness, htn Immunizations: Have You Had Influenza Vaccine: No History of Tetanus Vaccine?: No History of Pneumococcal: No History of Hepatitis B Vaccine: No Procedures: CHEST ONE VIEW PORTABLE CLINICAL HISTORY: CHEST PAIN dyspnea COMPARISON STUDY: 10/28/2017 FINDINGS: Side progressive bibasilar interstitial Bronchial prominence. Moderate stable cardiomegaly. Upper lungs are clear. IMPRESSION: Some progressive bibasilar parenchymal peribronchial and interstitial change possibly in the bases of basilar pneumonitis. CHEST ONE VIEW PORTABLE CLINICAL HISTORY: new onset afib COMPARISON STUDY: 03/07/2014 FINDINGS: The heart is enlarged. There is no lobar consolidation. There is suspected bronchial wall thickening within the right lower lobe medially. There is mild central vascular prominence without evidence of overt failure. There are no significant pleural effusions. There are minor left basilar atelectatic changes.[ IMPRESSION: 1. Cardiomegaly. Mild central vascular prominence without evidence of overt failure 2. Suspected right lower lobe bronchial wall thickening Consultations: Dr. Duarte with cardiology Medication Reconciliation New Medications: Apixaban (Eliquis) 2.5 Mg Tab 5 MG PO BID for 30 Days, #120 TAB Diltiazem HCl (Diltiazem HCl ER) 120 Mg Caper 240 MG PO QAM for 30 Days, #60 CAP Levofloxacin (Levofloxacin) 500 Mg Tab 500 MG PO DAILY@1700 for 2 Days, #2 TAB Metoprolol Tartrate (Lopressor) 25 Mg Tab 25 MG PO BID for 30 Days, #60 TAB Continued Medications: Ascorbic Acid (Ascorbic Acid) 1,000 Mg Tab 1000 MG PO QAM Cholestyramine (Cholestyramine) 4 Gm Pow 4 GM PO BID Yovdnwvxhyw-Culeqzvjruw-Qml C- (Glucosamine Chondroitin) 1 Tab Tab 2 TABLETS PO QAM Losartan Potassium (Cozaar) 50 Mg Tab 50 MG PO QAM Multivitamin (Multivitamin) Tab 1 TAB PO QAM Ocuvite Preservision (Ocuvite Preservision) 1 Tab Tab 2 TABS PO BID [place]-3 Fatty Acids (Fish Oil) 1 Cap Cap 1 CAP PO QAM Potassium Ext Rel (Klor-Con) 20 Meq Tabcr 20 MEQ PO TID Simvastatin (Zocor) 20 Mg Tab 20 MG PO QAM Torsemide (Demadex) 20 Mg Tab 20 MG PO QAM Discontinued Medications: Clonidine Hcl (Catapres) 0.1 Mg Tab 0.1 MG PO BID Hydralazine Hcl (Apresoline) 50 Mg Tab 50 MG PO BID Discharge Exam ROS Constitutional: no chills, aches, sweats or fever Respiratory: mild cough non productive Cardiac: no chest pain, palpitations, edema, orthopnea or lightheadedness GI: no abdominal pain, nausea, vomiting, diarrhea or constipation : no dysuria or hesitancy Extremities: no joint pain or weakness Skin: no rash All other systems reviewed and negative General: no distress Eyes: normal inspection, PERLL Respiratory: chest non tender, clear to auscultation, normal breath sounds, no respiratory distress, no accessory muscle use Cardiac: irregular rate and rhythm, no rub or gallop, no murmur, no edema, no jvd GI/: active bowel sounds, no abd pain or tenderness, soft, non distended Extremities: normal range of motion, normal strength, non tender Neuro/Psych: alert and oriented x 3, normal mood and affect Skin: normal color, dry Hospital Course Mr. Salazar is a 67 years old man with past medical history of hypertension, dyslipidemia, arthritis and obesity. Presented to the ED as he was sent from his primary care physician office to be evaluated for new onset atrial fibrillation. 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 Fever chills dry cough rarely productive clear mucus. He thought he had flu and was treating himself with lfbw-mcy-ibrctia medications Delsym, DayQuil, etc. ). A.fib RVR - heart rate controlled in the 90s, max 120 briefly with ambulation. Patient was asymptomatic to spikes in heart rate. - initially heart rate as high as 130. Diltiazem gtt was transition to po diltiazem 240 mg daily this am and Eliquis started yesterday, cardiology also started metoprolol 25 mg bid - per cardiology, will evaluate for cardioversion after about a month of anticoagulation - TSH wnl Hypokalemia - low value of 3.3 - replaced. PNA - Patient complained of flu like symptoms on admission. CXR was equivocal - may have an element of fluid overload as BNP was 1448 - Echo did not show any significant changes from the last in 2012, EF 70% - Levaquin changed to po - last day 11/01 for five days of treatment, received nebulizer treatments throughout admission - BC negative - restarted torsemide for home. HTN - for home, restarted torsemide and losartan, held clonidine and hydralazine as metoprolol and diltiazem were added for a.fib. 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 Discharge Instructions Please refer to the electronic Patient Visit Report (Discharge Instructions) for additional information. Follow-Up Cardiology within a week PCP in a week.
--- NOTE | 2017-10-30 15:26 | NUR ---
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 Maradiaga on FridayNovember 03 at 9:15 am. *If you need to change this appointment, you can call his office at [phone]. Please, follow up at [facility] Card[facility] Office with Dr. Foley on FridayNovember 11 at 9:30 am. *This office is located in [address] of [facility] next to this [facility]. If you need to change this appointment, you can call his office at [phone]."
[2017-10-30] MEDS ORDERED: LEVOFLOXACIN 500 MG TAB PO SCH (17:00)
--- NOTE | 2017-10-30 18:13 | NUR ---
PATIENT DISCHARGED TO HOME AFTER CONFERRING WITH THE FLIGHT PURSER THAT PATIENT HAD NO SUSTAINED EPISODES OF TACHYCARDIA. PATIENT VERBALIZED THAT HE WAS ASYMPTOMATIC AND FELT FINE AMBULATING. PATIENT DENIED DISCOMFORTS, SOB. HEPLOCK REMOVED WITH DRESSING APPLIED. SITE UNREMARKABLE. D/C INSTRUCTIONS REVIEWED WITH PATIENT WHO VERBALIZED UNDERSTANDING. PATIENT DEPARTED UNIT WITH VISITOR AND ALL BELONGINGS HAVING REFUSED WHEELCHAIR ESCORT TO FAMILY VEHICLE.
== END 2017-10-30 18:24 | disposition home or self-care (01) | DRG 308 ==
LOC: C.EDB 10:39 → C.2T 13:55 → ENRESERV 14:52
PROVIDERS: ADMIT Internal Medicine; ATTEND Hospitalist
DX: I48.91 Unspecified atrial fibrillation (principal); J18.9 Pneumonia, unspecified organism; J06.9 Acute upper respiratory infection, unspecified; I10 Essential (primary) hypertension; E78.5 Hyperlipidemia, unspecified; E66.9 Obesity, unspecified; E87.6 Hypokalemia; Z87.891 Personal history of nicotine dependence; Z68.39 Body mass index [BMI] 39.0-39.9, adult

== ENCOUNTER → 2017-12-11 | Day surgery (SDC) | payer MEDICARE, OTHER ==
[~2017-12-11] VITALS: Ht 185.4 cm; Wt 132.0 kg
[~2017-12-11] MED LIST changes: -CLON0.1T12 PO; +DLCSR120 PO; +ELQ25 PO; -HYDR-4717 PO; +LPR25 PO; +LVQ500 PO; -POTA-639 PO; +POTA20TA16 PO
[2017-12-11 07:03] VITALS: PULSE 69; Ht 185.4 cm; Wt 132.0 kg
== END | disposition home or self-care (01) ==
LOC: C.CATH 06:29
PROVIDERS: ATTEND Internal Medicine Cardiovascular Disease
DX: I48.91 Unspecified atrial fibrillation (principal); E87.6 Hypokalemia; I10 Essential (primary) hypertension; M19.90 Unspecified osteoarthritis, unspecified site; E78.5 Hyperlipidemia, unspecified; K64.8 Other hemorrhoids; E66.9 Obesity, unspecified; Z87.891 Personal history of nicotine dependence; Z88.2 Allergy status to sulfonamides; Z88.7 Allergy status to serum and vaccine; Z53.9 Procedure and treatment not carried out, unspecified reason

== ENCOUNTER → 2018-02-25 | Outpatient (CLI) | payer MEDICARE ==
[~2018-02-25] MED LIST changes: -LVQ500 PO; +POTA-639 PO; -POTA20TA16 PO
--- NOTE | 2018-02-25 11:08 | DIAGNOSTIC IMAGING REPORT ---
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 FINDINGS: Right kidney: Maximum dimension 14 cm. No evidence for hydronephrosis. Normal corticomedullary differentiation and cortical thickness. Left kidney: Maximum dimension 13.6 cm. No evidence for hydronephrosis. 2.5 cm upper pole cyst. Normal corticomedullary differentiation and cortical thickness. Bladder: No bladder wall thickening. The bilateral ureteral jets were identified. IMPRESSION: Normal renal ultrasound. No evidence for hydronephrosis. No evidence for nephrocalcinosis. 2.5 cm upper pole left renal cyst. The above report was generated using voice recognition software. It may contain grammatical, syntax or spelling errors. Electronically signed by: Nam Bradford M.D. 02/25/2018 11:07 AM Dictated Date/Time: 02/25/2018 11:06 AM
== END | disposition home or self-care (01) ==
LOC: C.ULTR 10:25
PROVIDERS: ATTEND Urology
DX: N20.0 Calculus of kidney (principal)